=== PATIENT | female | born 1945 | race Caucasian/White ===

== ENCOUNTER 2024-06-18 12:59 | Emergency (ER) | payer OTHER, SELFPAY ==
[2024-06-18] VITALS (9 sets, daily range): BP systolic 154–220; BP diastolic 78–114; PULSE 94
--- NOTE | 2024-06-18 15:25 | ED.GENMED ---
History of Present Illness
<Heaven Wharton PA-C - Last Filed: 06/18/24 20:22>
General
Chief Complaint: Gait Dysfunction
Source: patient
Exam Limitations: none
Time Seen by Provider: 06/18/24 15:23
Nursing documentation reviewed up to this point in time: agreed with
History of Present Illness
History of Present Illness:
78-year-old female with past medical history hypertension, hyperlipidemia, insulin-dependent diabetes, presents to the emergency department today with concerns of balance issues for the past 3 weeks. Patient reports that she is dealt with this for
period of months but felt like it got a lot worse the past few weeks. Patient reports that when she walks, sometimes she feels off balance and feels like she has to grab the counter or the assistance of her friend in order not to fall. Patient
states that she has had no recent falls. Patient denies dizziness, lightheadedness, headache, neck pain, chest pain, shortness of breath. She saw her primary care provider for this issue who ordered a CAT scan of her head which she had today and
this was negative for any acute abnormalities. She was advised by her primary care provider to report to emergency department to have an MRI performed to rule out stroke.
Review of Systems
<Heaven Wharton PA-C - Last Filed: 06/18/24 20:22>
Review of Systems
All Other Systems: ROS reviewed and negative except as documented in HPI and ROS
Phy Exam
<Heaven Wharton PA-C - Last Filed: 06/18/24 20:22>
Physical Exam
Physical Exam:
General: Patient is well appearing and in no acute distress; non-toxic
Skin: Warm and dry, no rashes or lesions
Head: Normocephalic, atraumatic
Eyes: Sclera non-icteric. EOMs intact. PERRLA.
Cardiac: Regular rate and rhythm, no murmurs
Pulm: Normal respiratory effort
Musculoskeletal: 5 out of 5 strength in bilateral upper and lower extremities.
Neuro: CN II-XII intact, no focal neurologic deficits. No dysmetria, normal finger-nose, heel el. Normal gait.
Psychiatric: Appropriate mood and affect.
Scores
<Heaven Wharton PA-C - Last Filed: 06/18/24 20:22>
NIH Stroke Score
Level of Consciousness: 0 - Alert
LOC Questions: 0-Answers both correctly
LOC Commands: 0-Performs both correctly
Best Horizontal Gaze: 0-Normal
Visual Shah: 0=Normal, no visual loss
Facial Palsy: 0=Normal, symmetrical
Motor - Right Arm: 0=No drift 10 seconds
Motor - Left Arm: 0=No drift 10 seconds
Motor - Right Le-No drift 5 seconds
Motor - Left Le-No drift 5 seconds
Limb Ataxia: 0-Absent
Sensation: 0-Normal
Best Language: 0-No aphasia
Dysarthria: 0-Normal
Extinction and Inattention: 0-No abnormality
Total Score:: 0
<Devan Maciel DO - Last Filed: 06/18/24 16:31>
NIH Stroke Score
Total Score:: 0
Course
<Heaven Wharton PA-C - Last Filed: 06/18/24 20:22>
Orders/Labs/Results
Orders:
Orders
06/18/24 13:06
Electrocardiogram (*1) Urgent
Reason for Study: Hypertension, Benign
06/18/24 13:07
EKG- Treatment ONCE
06/18/24 15:29
Electrocardiogram (*1) Urgent
Reason for Study: Vertigo / Dizzy
EKG- Treatment ONCE
06/18/24 15:45
Complete Blood Count/With Diff Urgent
06/18/24 16:09
Pt Eval And Treat Urgent
Activity Level: Ambulate
06/18/24 16:49
Comprehensive Metabolic Panel Urgent
Abnormal Lab Results
06/18/24 06/18/24
15:45 16:49
WBC 12.4 H 10^3/uL
(4.8-10.8)
RBC 4.11 L 10^6/uL
(4.20-5.40)
Hct 36.5 L %
(37.0-47.0)
MCH 31.4 H pg
(27.0-31.0)
MPV 11.9 H fL
(7.4-10.4)
Absolute Neuts (auto) 9.2 H 10^3/uL
(1.4-6.5)
Absolute Monos (auto) 1.0 H 10^3/uL
(0.1-0.6)
Lymphocytes % 16.0 L %
(20.5-51.1)
Sodium 133 L mmol/L
(135-145)
Chloride 94 L mmol/L
(98-107)
Glucose 156 H mg/dl
(70-99)
06/18/24 15:45
06/18/24 16:49
Vital Signs
Initial and Last Documented VS:
Initial Vital Signs
Temp Pulse Resp Pulse Ox
97.7 F 100 16 97
06/18/24 13:00 06/18/24 13:00 06/18/24 13:00 06/18/24 13:00
Last Documented Vital Signs
Temp Pulse Resp BP Pulse Ox
97.7 F 93 17 165/88 97
06/18/24 13:00 06/18/24 16:48 06/18/24 16:48 06/18/24 18:06 06/18/24 18:06
<Devan Maciel, DO - Last Filed: 06/18/24 16:31>
Orders/Labs/Results
Orders:
Orders
06/18/24 13:06
Electrocardiogram (*1) Urgent
Reason for Study: Hypertension, Benign
06/18/24 13:07
EKG- Treatment ONCE
06/18/24 15:29
Electrocardiogram (*1) Urgent
Reason for Study: Vertigo / Dizzy
EKG- Treatment ONCE
06/18/24 15:45
Complete Blood Count/With Diff Urgent
06/18/24 16:09
Pt Eval And Treat Urgent
Activity Level: Ambulate
06/18/24 16:49
Comprehensive Metabolic Panel Urgent
Abnormal Lab Results
06/18/24 06/18/24
15:45 16:49
WBC 12.4 H 10^3/uL
(4.8-10.8)
RBC 4.11 L 10^6/uL
(4.20-5.40)
Hct 36.5 L %
(37.0-47.0)
MCH 31.4 H pg
(27.0-31.0)
MPV 11.9 H fL
(7.4-10.4)
Absolute Neuts (auto) 9.2 H 10^3/uL
(1.4-6.5)
Absolute Monos (auto) 1.0 H 10^3/uL
(0.1-0.6)
Lymphocytes % 16.0 L %
(20.5-51.1)
Sodium 133 L mmol/L
(135-145)
Chloride 94 L mmol/L
(98-107)
Glucose 156 H mg/dl
(70-99)
06/18/24 15:45
06/18/24 16:49
Vital Signs
Initial and Last Documented VS:
Initial Vital Signs
Temp Pulse Resp Pulse Ox
97.7 F 100 16 97
06/18/24 13:00 06/18/24 13:00 06/18/24 13:00 06/18/24 13:00
Last Documented Vital Signs
Temp Pulse Resp BP Pulse Ox
97.7 F 93 17 165/88 97
06/18/24 13:00 06/18/24 16:48 06/18/24 16:48 06/18/24 18:06 06/18/24 18:06
<Heaven Wharton PA-C - Last Filed: 06/18/24 20:22>
MDM/Problems Addressed
Differential Diagnosis Includes:
Differentials include ambulatory dysfunction, orthostatic hypotension, osteoarthritis, polypharmacy, Alzheimer's disease, Parkinson's disease, stroke
MDM/Problems Addressed:
78-year-old female with past medical history hypertension, hyperlipidemia, insulin-dependent diabetes, presents to the emergency department today with concerns of balance issues for the past 3 weeks. Patient states that when she ambulates, she
feels unsteady on her feet. She has had no recent falls because of this. She does not use a walker or cane at home. She denies any numbness or tingling, one-sided weakness, difficulty speaking. Denies any headaches, dizziness, lightheadedness.
On exam, she has a normal gait, nonfocal neurologic exam, no dysmetria. She was evaluated by physical therapy and given a walker. I ran this case by her neurologist on-call who, because patient has a normal neurologic exam and normal gait, does
not feel that patient needs to be admitted for MRI to rule out stroke at this time. Did recommend that patient see a physical therapist on outpatient basis [facility], did recommend further follow-up with PCP, patient stable for
<Heaven Wharton PA-C - Last Filed: 06/18/24 20:22>
*Pulse Oximetry
Patient hypoxic: no
*Critical Care Note
Total Time (30-74mins, 75-104mins- exclusive of procedures): Not Applicable
Data Reviewed
Review of Other/Old Records Reveals: Records (Reviewed discharge summary from 12/13/2022, patient seen for cellulitis)
Source: patient and records
<Heaven Wharton PA-C - Last Filed: 06/18/24 20:22>
Patient Management
Discussion with other providers: Television Writer (Dr. Mullen)
Escalation/DeEscalation of care consider admission/obs:
admit not indicated, patient stable for discharge
case reviewed with ER attending
ED Attending Note
<Heaven Wharton PA-C - Last Filed: 06/18/24 20:22>
-
Portions of this chart may have been created with voice recognition software.� Occasional wrong word or��sound alike� substitutions may have occurred due to the inherent limitations of voice recognition software.
<Devan Maciel DO - Last Filed: 06/18/24 16:31>
ED Attending Note
Patient seen and examined by attending physician: Yes
I performed the substantive portion of visit, reviewed & personally made and approve the management plan that is documented in note by myself or CHENCHO.: Yes
I performed a history and physical exam of patient and discussed management with resident, I reviewed resident's note and agree with documented findings and plan of care.: Yes
ED Attending Note:
I evaluated the patient at bedside. The patient has normal finger-nose testing and normal [id number] testing. She was able to walk while in the ED Emergency Department. She has been hypertensive but also feels that she is under a lot of stress
right now. I did address her high blood pressure readings�she started taking her blood pressure medication at nighttime as opposed in the mornings.
Discharge Plan
Departure
Patient Disposition: Home (Routine Discharge)
Date of Disposition: 06/18/24
Time of Disposition: 17:34
Patient with high blood pressure during this ER visit?: Yes
Condition: Good
Discharge Problem:
Ambulatory dysfunction
Instructions: Preventing Falls ED, BLOOD PRESSURE
Prescriptions:
No Action
ascorbic acid (vitamin C) [Vitamin C] 1,000 MG tablet
1,000 mg PO BID
levothyroxine 100 MCG tablet
100 mcg PO DAILY
vitamin B complex 1 TAB tablet
1 tab PO DAILY
rosuvastatin 20 MG tablet
20 mg PO QPM
cholecalciferol (vitamin D3) [Vitamin D3] 50 mcg (2,000 unit) Tablet
50 mcg PO DAILY Qty: 0
multivitamin Tablet
1 tab PO DAILY
zinc acetate 50 mg (zinc) Capsule
50 mg PO DAILY
aspirin 81 mg Tablet,Delayed Release (Dr/Ec)
81 mg PO BID
calcium carbonate 500 mg calcium (1,250 mg) Tablet
500 mg PO DAILY
vitamin E 268 mg (400 unit) Capsule
268 mg PO DAILY
Januvia 100 mg tablet
100 mg PO DAILY
omega 1-oeo-erx-fish oil [Fish Oil] 1,000 mg (120 mg-180 mg) Capsule
1 cap PO DAILY
turmeric 400 mg Capsule
400 mg PO DAILY
elderberry fruit 350 mg Capsule
350 mg PO BID
Cinnsulin
1 tab PO BID
glucosamine-chondroitin
1 tab PO BID
acetaminophen 325 mg Tablet
650 mg PO Q4HPRN PRN (Reason: mild pain or temp > 100.4 F) Qty: 0 0RF
prednisone 20 mg Tablet
40 mg PO DAILY Qty: 3 0RF
pantoprazole 40 mg Tablet,Delayed Release (Dr/Ec)
40 mg PO DAILY Qty: 30 0RF
indomethacin 25 mg Capsule
25 mg PO BID Qty: 14 0RF
lisinopril 10 MG tablet
20 mg PO DAILY Qty: 30 0RF
Rx Instructions:
hold systolic blood pressure <130
insulin glargine [Lantus Solostar U-100 Insulin] 100 unit/mL (3 mL) insulin pen
26 unit SC HS Qty: 0 0RF
insulin glargine [Lantus Solostar U-100 Insulin] 300 UNITS/3 ML insulin pen
42 units SC DAILY Qty: 0 0RF
Referrals:
Darrell Mullen MD [Active] - Call in 1-3 days for appt
Marily Gordon MD [Family Provider] -
Activity Restrictions/Additional Instructions:
Please return to emergency department should you experience facial droop, weakness on one side of the body versus the other, feeling as though you are falling to one side when ambulating, headache, neck pain, dizziness, lightheadedness, syncopal
episodes, chest pain, shortness of breath, difficulty speaking, or any other signs or symptoms concerning to you.
Please have MRI of the brain performed as an outpatient.
Interventions
Interventions:
*Risk Screen - Suicide Last Done: 06/18/24 13:00
*General Assessment Last Done: 06/18/24 15:48
*Neglect/Abuse Screening Last Done: 06/18/24 13:00
ED- Fall Risk Assessment Last Done: 06/18/24 18:10
*ED COVID-19 Vaccine History Last Done: 06/18/24 13:00
*Nursing Disposition Last Done: 06/18/24 18:10
ED- Neurological Assessment Last Done: 06/18/24 15:47
ED-Musculoskeletal Assessment Last Done: 06/18/24 15:47
Discharge Date and Time
Discharge Date/Time: 06/18/24 18:15
Print Language: KITTITIAN
[2024-06-18 16:13] LABS: % Basophils 0.4 % (0-2); % Immature Granulocytes 0.3 % (0-0.5); % Monocytes 8.1 % (1.7-9.3); % Neutrophils 74.2 % (42.2-75.2); Absolute Basophils 0.1 10^3/uL (0-0.2); Absolute Eosinophils 0.1 10^3/uL (0-0.7); Absolute Neutrophils 9.2 10^3/uL (1.4-6.5); Hematocrit 36.5 % (37.0-47.0); Hemoglobin 12.9 g/dL (12.0-16.0); Mean Corp Hgb Conc. 35.3 g/dL (33.0-37.0); Mean Corpuscular Hgb 31.4 pg (27.0-31.0); Mean Corpuscular Volume 88.8 fL (81.0-99.0); Mean Platelet Volume 11.9 fL (7.4-10.4); Nucleated Red Blood Cells % 0 %; Platelet Count 347 10^3/uL (130-400); Red Blood Cell Count 4.11 10^6/uL (4.20-5.40); Red Cell Dist. Width 12.9 % (11.5-14.5); White Blood Cell Count 12.4 10^3/uL (4.8-10.8)
[2024-06-18 17:33] LABS: ALT (SGPT) 19 U/L (0-35); AST (SGOT) 27 U/L (14-36); Albumin 4.4 g/dl (3.5-5.0); Alkaline Phosphatase 98 U/L (38-126); Blood Urea Nitrogen 17 mg/dl (7-17); Carbon Dioxide 23 mmol/L (22-30); Chloride 94 mmol/L (98-107); Glucose 156 mg/dl (70-99); Potassium 4.6 mmol/L (3.5-5.1); Sodium 133 mmol/L (135-145); Total Bilirubin 0.6 mg/dl (0.2-1.3); Total Protein 7.3 g/dl (6.3-8.2); eGFR > 60.00
[2024-06-18 17:41] LABS: Calcium 10.2 mg/dl (8.4-10.2)
== END 2024-06-18 18:15 | disposition home or self-care (01) ==
LOC: EMR 12:59
PROVIDERS: Physician Assistant; EMERGENCY PHYSICIAN Emergency Medicine; FAMILY PHYSICIAN Internal Medicine
DX: R26.2 Difficulty in walking, not elsewhere classified (principal); I10 Essential (primary) hypertension; E78.5 Hyperlipidemia, unspecified; E11.9 Type 2 diabetes mellitus without complications; Z79.899 Other long term (current) drug therapy; Z79.4 Long term (current) use of insulin
CPT/HCPCS: 99284; 70450; 80053; 85025; 93005

== ENCOUNTER → 2024-06-26 17:44 | Outpatient (REF) | payer OTHER, SELFPAY | LOC: MRI 17:44 | PROVIDERS: ATTENDING PHYSICIAN Nurse Practitioner Family | DX: R29.810 Facial weakness (principal); R26.89 Other abnormalities of gait and mobility; R41.0 Disorientation, unspecified; I10 Essential (primary) hypertension; E11.65 Type 2 diabetes mellitus with hyperglycemia; R29.90 Unspecified symptoms and signs involving the nervous system; R29.818 Other symptoms and signs involving the nervous system | CPT/HCPCS: 70546; 70553; A9585 ==

== ENCOUNTER 2024-07-03 15:59 | Inpatient (IN) | payer OTHER, SELFPAY ==
[2024-07-03 11:14] VITALS: BP 191/89
--- NOTE | 2024-07-03 12:55 | ED.SKININJ ---
HPI-Injury
<Elliott Gonzalez PA-C - Last Filed: 07/03/24 14:29>
General
Chief Complaint: Skin Problem
Source: patient
Exam Limitations: none
Time Seen by Provider: 07/03/24 12:38
History of Present Illness-Injury
Initial Injury comments:
78-year-old female insulin-dependent diabetic presents with chief complaint that she pulled her finger off. She states she injured her fingernail to her right index finger 3 weeks ago and that fell off several days ago she thought what was left was
a blood blister and she started to try to clean it up and she states the tip of her finger came off. 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 She now notes her finger is red. She has neuropathy and
does not have a lot of sensation in her finger.
Phy Exam
<Elliott Gonzalez PA-C - Last Filed: 07/03/24 14:29>
Physical Exam
Physical Exam:
General: Well-appearing female no respiratory distress
HEENT: Normocephalic atraumatic
Skin: Erythema noted to the right index finger from the distalmost portion to the midportion of the middle phalanx, there is necrotic tissue at the end of the finger
Musculoskeletal exam: There is a amputation noted of the distal portion of the right index finger just distal to the base of the distal phalanx
Course
<Elliott Gonzalez PA-C - Last Filed: 07/03/24 14:29>
Orders/Labs/Results
Orders:
Orders
07/03/24 12:54
CR Finger(s)/thumb Min 2 Vw Rt Urgent
Comment:
Reason For Exam: amputation/infection
07/03/24 13:31
Complete Blood Count/With Diff Urgent
Comprehensive Metabolic Panel Urgent
07/03/24 14:22
Piperacillin/Tazo 3.375 Gram [Zosyn] 3.375 gram in 50 ml IV NOW
07/03/24 14:23
Vancomycin [Vancocin] 1,500 mg 0.9% Sodium Chloride 500 ml [Nss] 500 ml IV NOW
Abnormal Lab Results
07/03/24
13:31
WBC 21.4 H 10^3/uL
(4.8-10.8)
RBC 3.84 L 10^6/uL
(4.20-5.40)
Hgb 11.8 L g/dL
(12.0-16.0)
Hct 34.6 L %
(37.0-47.0)
MPV 11.2 H fL
(7.4-10.4)
Abs Immat Gran (auto) 0.1 H 10^3/uL
(0-0.05)
Absolute Neuts (auto) 18.2 H 10^3/uL
(1.4-6.5)
Absolute Monos (auto) 1.4 H 10^3/uL
(0.1-0.6)
Neutrophils % 84.9 H %
(42.2-75.2)
Lymphocytes % 7.7 L %
(20.5-51.1)
Sodium 129 L mmol/L
(135-145)
Chloride 91 L mmol/L
(98-107)
BUN 21 H mg/dl
(7-17)
Glucose 234 H mg/dl
(70-99)
07/03/24 13:31
07/03/24 13:31
Vital Signs
Initial and Last Documented VS:
Initial Vital Signs
Temp Pulse Resp BP Pulse Ox
98.4 F 116 18 191/89 98
07/03/24 11:14 07/03/24 11:14 07/03/24 11:14 07/03/24 11:14 07/03/24 11:14
Last Documented Vital Signs
Temp Pulse Resp BP Pulse Ox
98.4 F 99 18 201/104 98
07/03/24 11:14 07/03/24 13:44 07/03/24 13:44 07/03/24 13:44 07/03/24 13:44
<Damian Nielson MD - Last Filed: 07/03/24 13:18>
Orders/Labs/Results
Orders:
Orders
07/03/24 12:54
CR Finger(s)/thumb Min 2 Vw Rt Urgent
Comment:
Reason For Exam: amputation/infection
07/03/24 13:31
Complete Blood Count/With Diff Urgent
Comprehensive Metabolic Panel Urgent
07/03/24 14:22
Piperacillin/Tazo 3.375 Gram [Zosyn] 3.375 gram in 50 ml IV NOW
07/03/24 14:23
Vancomycin [Vancocin] 1,500 mg 0.9% Sodium Chloride 500 ml [Nss] 500 ml IV NOW
Abnormal Lab Results
07/03/24
13:31
WBC 21.4 H 10^3/uL
(4.8-10.8)
RBC 3.84 L 10^6/uL
(4.20-5.40)
Hgb 11.8 L g/dL
(12.0-16.0)
Hct 34.6 L %
(37.0-47.0)
MPV 11.2 H fL
(7.4-10.4)
Abs Immat Gran (auto) 0.1 H 10^3/uL
(0-0.05)
Absolute Neuts (auto) 18.2 H 10^3/uL
(1.4-6.5)
Absolute Monos (auto) 1.4 H 10^3/uL
(0.1-0.6)
Neutrophils % 84.9 H %
(42.2-75.2)
Lymphocytes % 7.7 L %
(20.5-51.1)
Sodium 129 L mmol/L
(135-145)
Chloride 91 L mmol/L
(98-107)
BUN 21 H mg/dl
(7-17)
Glucose 234 H mg/dl
(70-99)
07/03/24 13:31
07/03/24 13:31
Vital Signs
Initial and Last Documented VS:
Initial Vital Signs
Temp Pulse Resp BP Pulse Ox
98.4 F 116 18 191/89 98
07/03/24 11:14 07/03/24 11:14 07/03/24 11:14 07/03/24 11:14 07/03/24 11:14
Last Documented Vital Signs
Temp Pulse Resp BP Pulse Ox
98.4 F 99 18 201/104 98
07/03/24 11:14 07/03/24 13:44 07/03/24 13:44 07/03/24 13:44 07/03/24 13:44
<Elliott Gonzalez PA-C - Last Filed: 07/03/24 14:29>
MDM/Problems Addressed
Differential Diagnosis Includes:
Finger amputation likely secondary to underlying infectious process. Question possible osteomyelitis. There is necrosis skin distally. X-rays ordered to evaluate for any obvious signs of osteomyelitis
<Elliott Gonzalez PA-C - Last Filed: 07/03/24 14:29>
*Critical Care Note
Total Time (30-74mins, 75-104mins- exclusive of procedures): Not Applicable
<Elliott Gonzalez PA-C - Last Filed: 07/03/24 14:29>
Update Note
Update Note:
X-rays demonstrate bony amputation of the distal phalanx. No obvious sign of osteomyelitis. Patient's white blood cell count is 21,000. She is insulin-dependent diabetic. Discussed with emergency room attending saw the patient as well. Will
keep in hospital for necrotic finger and cellulitis of the index finger. Vanc/zosyn ordered.
ED Attending Note
<Elliott Gonzalez PA-C - Last Filed: 07/03/24 14:29>
-
Portions of this chart may have been created with voice recognition software.� Occasional wrong word or��sound alike� substitutions may have occurred due to the inherent limitations of voice recognition software.
<Damian Nielson MD - Last Filed: 07/03/24 13:18>
ED Attending Note
Patient seen and examined by attending physician: Yes
I performed the substantive portion of visit, reviewed & personally made and approve the management plan that is documented in note by myself or CHENCHO.: Yes
ED Attending Note:
Patient presents with her fingertip falling off. Some local pain. Patient is diabetic. The same issue happened with her middle digit. She does not specifically recall any trauma.
The tip of the second finger is gangrenous and necrotic. There is an open wound at this PIP. There is erythema extending up the finger. Mild swelling. Patient is nontoxic. Good radial pulses. Third digit has an amputated tip. Heart regular
rate and rhythm
Impression is a necrotic gangrenous amputated tip of the second digit. Unknown reason. Which of course in and of itself is a concern. There is also a local cellulitis. Patient warrants inpatient management for cellulitis. Management of this
open necrotic wound and an evaluation of the cause of these episodes occurring.
Discharge Plan
Departure
Patient Disposition: Admit
Date of Disposition: 07/03/24
Time of Disposition: 14:29
Admit to: Telemetry
Presentation/result/management discussed w/ accepting MD/DO: Hospitalist
Discharge Problem:
Cellulitis
Prescriptions:
No Action
ascorbic acid (vitamin C) [Vitamin C] 1,000 MG tablet
1,000 mg PO BID
levothyroxine 100 MCG tablet
100 mcg PO DAILY
vitamin B complex 1 TAB tablet
1 tab PO DAILY
rosuvastatin 20 MG tablet
20 mg PO QPM
cholecalciferol (vitamin D3) [Vitamin D3] 50 mcg (2,000 unit) Tablet
50 mcg PO DAILY Qty: 0
multivitamin Tablet
1 tab PO DAILY
zinc acetate 50 mg (zinc) Capsule
50 mg PO DAILY
aspirin 81 mg Tablet,Delayed Release (Dr/Ec)
81 mg PO BID
calcium carbonate [Oyster Shell Calcium] 500 mg calcium (1,250 mg) Tablet
500 mg PO DAILY
vitamin E 268 mg (400 unit) Capsule
268 mg PO DAILY
glucosamine-chondroitin 500-400 mg Tablet
1 tab PO BID Qty: 0
cinnamon bark [Cinnamon] 500 mg Capsule
500 mg PO DAILY Qty: 0
Januvia 100 mg tablet
100 mg PO DAILY
omega 6-qig-sdk-fish oil [Fish Oil] 1,000 mg (120 mg-180 mg) Capsule
1 cap PO DAILY
turmeric 400 mg Capsule
400 mg PO DAILY
elderberry fruit 350 mg Capsule
350 mg PO BID
lisinopril 10 MG tablet
20 mg PO DAILY Qty: 30 0RF
insulin glargine [Lantus Solostar U-100 Insulin] 300 UNITS/3 ML insulin pen
42 units SC DAILY Qty: 0 0RF
acetaminophen [Tylenol Arthritis] 650 mg Tablet Extended Release
1,300 mg PO [id number] PRN (Reason: mild pain)
insulin glargine [Lantus Solostar U-100 Insulin] 100 unit/mL (3 mL) insulin pen
22 unit SC HS
allopurinol 100 mg Tablet
100 mg PO BID
Referrals:
Marily Gordon MD [Family Provider] -
Interventions
Interventions:
*Risk Screen - Suicide Last Done: 07/03/24 11:14
*General Assessment Last Done: 07/03/24 11:14
*Neglect/Abuse Screening Last Done: 07/03/24 13:14
ED- Fall Risk Assessment Last Done: 07/03/24 13:14
*ED COVID-19 Vaccine History Last Done: 07/03/24 11:14
ED-Skin Assessment Last Done: 07/03/24 13:14
Discharge Date and Time
Print Language: IVORIAN
[2024-07-03 13:42] LABS: % Basophils 0.3 % (0-2); % Eosinophils 0.1 % (0-6); % Immature Granulocytes 0.5 % (0-0.5); % Lymphocytes 7.7 % (20.5-51.1); % Monocytes 6.5 % (1.7-9.3); % Neutrophils 84.9 % (42.2-75.2); Absolute Basophils 0.1 10^3/uL (0-0.2); Absolute Immature Granulocytes 0.1 10^3/uL (0-0.05); Absolute Lymphocytes 1.6 10^3/uL (1.2-3.4); Absolute Monocytes 1.4 10^3/uL (0.1-0.6); Absolute Neutrophils 18.2 10^3/uL (1.4-6.5); Hematocrit 34.6 % (37.0-47.0); Hemoglobin 11.8 g/dL (12.0-16.0); Mean Corp Hgb Conc. 34.1 g/dL (33.0-37.0); Mean Corpuscular Hgb 30.7 pg (27.0-31.0); Mean Corpuscular Volume 90.1 fL (81.0-99.0); Mean Platelet Volume 11.2 fL (7.4-10.4); Nucleated Red Blood Cells % 0 %; Platelet Count 320 10^3/uL (130-400); Red Blood Cell Count 3.84 10^6/uL (4.20-5.40); Red Cell Dist. Width 12.7 % (11.5-14.5); White Blood Cell Count 21.4 10^3/uL (4.8-10.8)
[2024-07-03 13:44] VITALS: BP 201/104
[2024-07-03 13:58] LABS: ALT (SGPT) 19 U/L (0-35); AST (SGOT) 30 U/L (14-36); Albumin 3.9 g/dl (3.5-5.0); Alkaline Phosphatase 86 U/L (38-126); Blood Urea Nitrogen 21 mg/dl (7-17); Calcium 9.7 mg/dl (8.4-10.2); Carbon Dioxide 26 mmol/L (22-30); Chloride 91 mmol/L (98-107); Glucose 234 mg/dl (70-99); Potassium 4.9 mmol/L (3.5-5.1); Sodium 129 mmol/L (135-145); Total Bilirubin 0.7 mg/dl (0.2-1.3); Total Protein 6.8 g/dl (6.3-8.2); eGFR > 60.00
--- NOTE | 2024-07-03 14:32 | HPS.HSE ---
Family Physician
-
Family Physician: Marily Gordon
Chief Complaint
-
Right index finger red swollen distal tip necrotic and missing
History of Present Illness
78-year-old female insulin-dependent diabetic who states she injured her fingernail to her right index finger several months ago and the nail fell off. She has no idea how she injured her index finger. She had an open wound to the distal end of
her right index finger for several months and did not think anything of it. She was seen by a nurse practitioner Lin at [facility] approximately 2 weeks ago for complaints of dizziness needing to use a walker. She had negative CT head
and negative MRI brain per patient. In discussion with the patient she states her blood pressure has been elevated with systolic running around 189. I explained to the patient this could cause her symptoms of dizziness and ataxia. She states she
had the nurse practitioner examine her index finger and at that time there was no erythema and active drainage she was advised to place Aquaphor on the dry areas of her finger and wrapped it with gauze. She noticed approximately 2 days ago the
finger became swollen and there was a black area to the tip of the finger. Where the missing distal skin is. She has severe neuropathy in both hands she does feel a tingling sensation only she has no throbbing pain in her index finger and is able
to squeeze it in front of me. She has a prior history of right middle finger partial amputation secondary to infection complains of erythema to the right index finger and not much pain secondary to chronic neuropathy in her hands. In the ER her
right index finger from the distal to midportion of the middle phalanx is red and swollen and has necrotic tissue at the distal end of the finger.
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 HTN, HLD, hiatal hernia, chronic indigestion,
hypothyroidism, osteoarthritis, cataracts
Medical History
Past Medical History
Past Medical History: Reports Other
Additional Past Medical History:
Diabetes type 2�insulin-dependent
Diabetic neuropathy bilateral hands
HTN
HLD
Hiatal hernia
Chronic indigestion
Hypothyroidism
osteoarthritis
cataracts
Past Surgical History: Reports Other
Additional Past Surgical History:
Left vein stripping
Cataract extraction 07/26/2013
Left vein stripping
[place] tooth extraction
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
Right middle finger partial amputation secondary to infection
Social History
Tobacco: Non-smoker
Alcohol: Occasional
Drug: None
Personal:
Living: With Family ( clellan)
Employment: Retired
Family History
Family History: Not pertinent
Allergies / Home Medications
Allergies reflects when Allergies were last updated in [facility].
Home Medications with original date entered in [facility]
Allergy/Medication List:
Allergies
Allergy/AdvReac Type Severity Reaction Status Date / Time
No Known Allergies Allergy Unverified 12/11/22 11:15
Home Medications
Cinnamon 1,000 mg PO BID 11/13/18
Vitamin D3 1 tab PO DAILY 11/13/18
ascorbic acid (vitamin C) 1,000 mg tablet (Vitamin C) 1,000 mg PO BID 11/13/18
cetirizine 10 mg capsule (Allergy Relief (cetirizine)) 10 mg PO DAILY 11/13/18
levothyroxine 100 mcg tablet 100 mcg PO DAILY 11/13/18
metformin 500 mg tablet 1 tab PO .@0800,@1200,@1800 11/13/18
rosuvastatin 20 mg tablet 20 mg PO QPM 11/13/18
vitamin B complex 1 tab PO DAILY 11/13/18
mupirocin 2 % topical ointment 1 applic intranasal BID #1 tube 11/26/18
acetaminophen 325 mg tablet 650 mg PO QID 01/29/19
aspirin 325 mg tablet,delayed release 325 mg PO DAILY 01/29/19
docusate sodium 100 mg capsule 100 mg PO BID 01/29/19
glimepiride 2 mg tablet 2 mg PO DAILY 01/29/19
insulin glargine 100 unit/mL (3 mL) subcutaneous pen (Lantus Solostar U-100 Insulin) 15 units (0.15 mL) SC BID ##1 01/29/19
lisinopril 10 mg tablet 10 mg PO DAILY ##0 01/29/19
magnesium hydroxide 400 mg/5 mL oral suspension 30 ml PO DAILYPRN PRN constipation 01/29/19
oxycodone 5 mg tablet 5 mg PO Q4HPRN PRN moderate-severe pain ##35 01/29/19
sennosides 8.6 mg tablet (senna) 2 tab PO BID 01/29/19
Review of Systems
-
History Source: Patient and Family ( at bedside)
A 12 point ROS was completed and negative except as noted: Yes
Constitutional: Denies Fever, Fatigue or Chills
EENT: Denies Sore Throat or Runny Nose
Respiratory: Denies Cough or Trouble Breathing
Cardiac: Denies Chest Pain, Diaphoresis, Palpitations or Syncope
Abdomen/GI: Denies Abdominal Pain, Nausea, Vomiting, Diarrhea, Constipated, Bloody Stools or Black Stools
: Denies Dysuria, Frequency, Flank Pain, Incontinence, Difficulty Voiding or Urgency
Musculoskeletal: Reports Joint Swelling (Right index finger), Edema (Right index finger) and Other (Right index finger with circumferential swelling and erythema along with distal tip skin missing with area of necrosis at tip level, severe
neuropathy in both hands); Denies Joint Pain
Skin: Denies Itching or Rash
Neurological: Reports Dizzy (Ongoing 2 to 3 weeks with ambulatory dysfunction); Denies Headache, Weakness or Numbness
Endocrine: Reports No Symptoms
Hematologic/Lymphatic: Reports No Symptoms
Psych: Reports Calm
Physical Exam
Vital Signs
Vital Signs
Temp Pulse Resp BP Pulse Ox
98.4 F 99 18 201/104 98
11/27/24 11:14 07/03/24 13:44 07/03/24 13:44 07/03/24 13:44 07/03/24 13:44
Physical Exam
General: Comfortable and Conversant; No Pain, Fever or Chills
HEENT: NormoCephalic, Anicteric, Moist mucous membranes, PERRLA, [place] Conjunctivae and No Ptosis
Respiratory: Clear; No Wheezes, Rales or Rhonchi
Cardiac: S1/S2 and Regular Rhythm; No Murmur, Rub, Gallop or Peripheral Edema
GI: Soft, Non Tender, Non Distended, Normal Bowel Sounds and No Hepatosplenomegaly
Rectal: Deferred by Provider
Genito-urinary: Deferred by me
Musculoskeletal: No Clubbing, No Cyanosis, No Edema and Other (Right index finger with circumferential swelling and erythema along with distal tip skin missing with area of necrosis at tip level, severe neuropathy in both hands)
Skin: Warm and Dry; No Rash or Jaundice
Neuro: AO x 3, Nonfocal/grossly intact, Cranial Nerves Intact, No Sensory Deficits and Other (Using cane over the last 2 to 3 weeks for dizziness and ataxia); No Slurred Speech, Facial Droop, Tremors or Sedated
Psych: Calm
Laboratory Results
-
07/03/24 13:31
07/03/24 13:31
Laboratory Results
Total Bilirubin 0.7 mg/dl (0.2-1.3) 07/03/24 13:31
AST 30 U/L (14-36) 07/03/24 13:31
ALT 19 U/L (0-35) 07/03/24 13:31
Alkaline Phosphatase 86 U/L (38-126) 07/03/24 13:31
Data Reviewed
-
Diagnostic Radiology: Report Reviewed by me
Lab Data: Labs Reviewed by me
Impression/Plan
-
Impression/plan:
Admit to telemetry
Right index finger cellulitis with open necrotic wound at the PIP level secondary osseous amputation concern for osteomyelitis and diabetic female
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
WBC 21.4 left shift, 98.4, HR 99, 201/104
-Consult Ortho
-IV vancomycin, IV Zosyn
-Check MRSA screen
-Will check CT hand with contrast per Dr. Tian Alok orthopedics
-Follow CBC, CMP
Xray finger:
Soft tissue and osseous amputation at the level of the distal aspect of the distal phalanx of the right index finger. No radiopaque foreign body. No definitive abnormal osteolysis of the remaining portion of the distal phalanx.
#Hyponatremia in setting of mild hyperglycemia
NA 129,BS 234
-Check urine Osmo, serum Osmo, urine NA, TSH with free T4 reflex
#Htn accelerated
-Lisinopril 20 mg added now
-Continue lisinopril 20 mg at bedtime
-Will change lisinopril from 20 mg daily to lisinopril 20 mg twice daily with hold parameters
#Diabetes type 2�insulin-dependent Dx age 43
#Diabetic neuropathy bilateral hands
-Continue Lantus 42 units a.m., Lantus 22 units at bedtime
-Hold Januvia 100 mg daily
-Will give SSI low with meals, check HgbA1c
-Consult diabetic HYDROMETEOROLOGIST
#Acute on chronic ambulatory dysfunction with dizziness likely secondary to persistent blood pressure systolic 189 over the past 2 to 3 weeks But has Abn MA BRAIN
-Patient had outpatient MRI brain and CT she reports both were negative
-We will adjust blood pressure medication and monitor patient's symptoms and gait
-Consult PT/OT
-Consult NEURO
MA [place] [facility] [place] with and without contrast: 06/18/2024
1. This examination demonstrates no focal hemodynamically significant stenosis, aneurysm or occlusion.
2. 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
MRI brain 06/18/2024
1. No acute intracranial abnormality noted.
2. There is mild atrophy, most pronounced within the bilateral mesial temporal lobes. Minimal microangiopathic changes.
3. Severe degenerative changes of the bilateral temporomandibular joints, more pronounced on the right.
CT brain 06/18/2024
1. No acute intracranial pathology.
2. Mild nonacute bilateral maxillary sinusitis.
#HLD
-Continue Crestor 20 mg every afternoon
- HOLD fish oil, and vitamin E
#Hiatal hernia
#Chronic indigestion
-Will add PPI and occasional Tums
#Hypothyroidism
Check TSH with free T4 reflex
-Continue levothyroxine 100 mcg p.o. daily
#Osteoarthritis
-Continue Tylenol 1000 mg 3 times daily
#Gout
Continue allopurinol 100 mg twice daily
#cataracts
DVT prophylaxis
Subcu Lovenox
Full code
[2024-07-03 14:46] VITALS: BMI 35.5
--- NOTE | 2024-07-03 14:46 | W.PN.UPDATE ---
Update Note
Progress Note Update
This note serves as an addendum to the H&P by logistics planner Suzi BUTTS
HPI
77 HX [id number], HTN, HLD, Hypothyroidism seen at ER:
- Rt index finger nail injury 3 weeks ago then fell off several days ago
- left was a blood blister and she started to try to clean it up and she states the tip of her finger came off ?
- report Rt index finger is red
- HX right middle finger partial amputation secondary to infection.
PHX: as above
Reviewed VS: afebrile BP 201/104 HR 115--> 100
PE
Gen: Not toxic
HEENT: anicteric
Neck: supple
Lungs: CTA
Cor: RRR S1 S2
Abdomen: Benign exam
TEST LEAD APPLICATION TESTING: AAOx3 symmetric movements in all limbs
MS: right index finger: from the distal most portion to the midportion of the middle phalanx, there is necrotic tissue at the end of the finger
Psych: normal mood and affect
Finger XR
Soft tissue and osseous amputation at the level of the distal aspect of the distal phalanx of the right index finger.
No radiopaque foreign body.
No definitive abnormal osteolysis of the remaining portion of the distal phalanx.
Data
WCC 21.4
Hgb 11.8
Na 129 BG 234 Corrected Na 131
Cl 91
Cr 0.9
Last hospitalist admission :Date of Admission: 12/11/22 -Date of Discharge: 12/13/22
Discharge DX: right wrist/forearm redness, suspect secondary to pseudogout
ASSESSMENT & PLAN
Non traumatic deep tissues infection with necrosis and cellulitic distal portion of the distal phalanx of the Rt index finger
No definitive abnormal osteolysis of the remaining portion of the distal phalanx
Sepsis ( HR > 90, WCC > 10k)
S/P middle finger partial amputation secondary to infection: well healed
Known underlying peripheral neuropathy distal UExs
- leucocytosis 21s
- Check nasal MRSA screen
- Empiric IV Vancomycin and Zosyn - trend WCC
- Hand Ortho consult
HTN urgency: she has not taken Lisinopril today coz she normally takes at night
Benign HTN
- IV Hydralazine PRN for SBP > 165/ 110
- to give ACCOUNT CLASSIFICATION CLERK Lisinopril 20 mg now
- Observe BP
Hyperglycemia acute infection
[id number]
- Lantus 42u daily and 22U qhs qhs
- add ISS low
- check A1C
Pseudohyponatremia due to hyperglycemia
- Observe Na with BS corrrection
Hyperlipidemia
- cont. ACCOUNT CLASSIFICATION CLERK Rosuvastatin 20mg qpm
Hypothyroidism
- cont. ACCOUNT CLASSIFICATION CLERK levothyroxine 100mcg daily
DVT Px: SQH
Full code
IP TLM
[2024-07-03] MEDS: ZOSYN 50 IV ×2 (14:48→22:15)
--- NOTE | 2024-07-03 15:53 | CON.NEURO ---
Neuro Assessment/Plan
Assessment
Semiabrupt onset of gait ataxia
Most likely due to severe sensory axonal peripheral neuropathy. There is no clear evidence of an ataxia currently.
Plan
Physical therapy to improve gait
Normoglycemia, gradually to not induce a painful neuropathy
Goal of normotension
Patient may require orthostatic blood pressures although not experiencing a sense of dizziness at this time
Check blood work for additional metabolic abnormalities which might be producing symptomatology
Will follow as needed.
Consultation
Order
Date of Consultation: 07/03/24
Requesting Provider: Hospitalist
Reason for Consult: Ataxia
Subjective/Objective
Subjective Data
Date of Service: July 03, 2024
Right handed
According to medical records, the patient began experiencing a sense of being off balance in May 2024 for which she presented to her primary care provider. An MRI of the brain was ordered with MRA of the head. Neither study showed significant
issues. Additionally, at the time of her last primary care visit, the patient has been described as having cognitive decline over the course of the last month. Specifically, the patient was retelling stories incorrectly.
Patient reports that she has been experiencing unsteadiness in no particular direction. She has not had any falling. There has been longstanding tingling sensation in the feet lasting for years. Back pain but not neck pain has been present for
the last 10 years. She has never had therapy to improve balance.
Due to a significant infection of the right second finger, the patient presented to this hospital's emergency department.
Objective Data
Vital Signs
Temp Pulse Resp BP Pulse Ox
36.9 C 99 18 201/104 98
07/03/24 11:14 07/03/24 13:44 07/03/24 13:44 07/03/24 13:44 07/03/24 13:44
Lab Results
07/03/24 13:31
07/03/24 13:31
Sodium 129 mmol/L (135-145) L 07/03/24 13:31
Potassium 4.9 mmol/L (3.5-5.1) 07/03/24 13:31
BUN 21 mg/dl (7-17) H 07/03/24 13:31
Glucose 234 mg/dl (70-99) H 07/03/24 13:31
Calcium 9.7 mg/dl (8.4-10.2) 07/03/24 13:31
Patient Allergies
No Known Allergies Allergy (Verified 07/03/24 11:18)
Review of Systems
-
History Source: Patient and Family
All other systems: Reviewed and negative
EENT: Negative Decreased Vision
Abdomen/GI: Negative Incontinence of Stool
Genitourinary: Negative Incontinence
Musculoskeletal: Back Pain; Negative Neck Pain
Neuro: Other (Unsteadiness); Negative Dizzy or Headache
Physical Exam
-
General: No Apparent Distress, Obese and Appears Stated Age
Eyes: OU Absent Papilledema, Able to visualize OU, Round OU, [place] Conjunctivae and No Ptosis
HEENT: Anicteric and Moist Mucous Membranes
Neck: Full Range of Motion
Respiratory: No Dyspnea
Cardiac: No JVD
GI: Non-distended
Extremities: No Clubbing, No Cyanosis, Edema +2 (Right second finger) and Other (Near loss of the distal phalanx of the right second finger)
Psych: Negative Intact Judgement/Insight
Extended Neurological Exam
Mood & Affect: Mood Unremarkable and Affect Unremarkable
Attention Span & Concentration: Awake, Alert, Interactive and No Difficulty with 2 Step Request
Memory: Unremarkable
Tremor: Hand Tremor Absent and Head Tremor Absent
Speech: Quality Unremarkable and Quantity Unremarkable
Cranial Nerve II: Left Eye: Pupillary Reactivity Unremarkable, Pupillary Size Unremarkable and Visual Shah Intact
Cranial Nerve II: Right Eye: Pupillary Reactivity Unremarkable, Pupillary Size Unremarkable and Visual Shah Intact
Cranial Nerves III, IV, : Extraocular Movement: Extraocular Movement Full in all Directions and No Ptosis
Cranial Nerve VII: Facial Symmetry: Normal Facial Symmetry
Cranial Nerve VIII: Hearing: Unremarkable Hearing to Normal Conversational Volume
Cranial Nerves IX, X: Palate Movement: Palate Elevation Symmetric
Cranial Nerve XI: Shoulder Shrug: Unremarkable
Cranial Nerve XII: Tongue Protusion: Midline
Muscle Strength, Overall: Full Throughout
Muscle Bulk & Tone: Bulk Unremarkable and Tone Unremarkable
Pronator Drift: No Drift in Upper Extremities and No Drift in Lower Extremities
Deep Tendon Reflexes: Absent Throughout
Touch Sensation: Unremarkable
Coordination: [id number]-[id number] Testing Unremarkable and Pqij-Szeb-Immp movements intact bilaterally
Babinski Sign: Absent Bilaterally
Gait & Station: Up from Seated Without Problem, Romberg Test Positive and Wide Based
Data Reviewed
-
MRI Head: Report Reviewed and Image Reviewed
MRA Head: Report Reviewed
Labs: Report Reviewed
Reviewed with: Nurse Practioner, Patient and Family
Old Records: Summarized
Medications
-
Active Medications
Generic Name Dose Route Start Last Admin
Trade Name Freq PRN Reason Stop Dose Admin
Vancomycin HCl 2,000 mg/ 540 mls @ 270 mls/hr 07/03/24 14:53
Sodium Chloride IV 07/03/24 16:52
NOW STA
Home Medications
�Medication �Instructions �Recorded
ascorbic acid (vitamin C) 1,000 mg 1,000 mg PO BID Supplement 11/13/18
tablet (Vitamin C)
cholecalciferol (vitamin D3) 50 50 mcg PO DAILY Supplement ##0 11/13/18
mcg (2,000 unit) tablet (Vitamin
D3)
levothyroxine 100 mcg tablet 100 mcg PO DAILY Thyroid 11/13/18
rosuvastatin 20 mg tablet 20 mg PO QPM High Cholesterol 11/13/18
vitamin B complex 1 tab PO DAILY Supplement 11/13/18
aspirin 81 mg tablet,delayed 81 mg PO BID Blood Clot 12/11/22
release Prevention/Tx
calcium carbonate (Oyster Shell 500 mg PO DAILY Supplement 12/11/22
Calcium)
cinnamon bark 500 mg capsule 500 mg PO DAILY Supplement ##0 12/11/22
(Cinnamon)
elderberry fruit 350 mg capsule 350 mg PO BID Supplement 12/11/22
glucosamine-chondroitin 500 mg-400 1 tab PO BID Supplement ##0 12/11/22
mg tablet
multivitamin 1 tab PO DAILY Supplement 12/11/22
omega 6-pwf-scs-fish oil 1,000 mg 1 cap PO DAILY Supplement 12/11/22
(120 mg-180 mg) capsule (Fish Oil)
sitagliptin phosphate 100 mg 100 mg PO DAILY Diabetes 12/11/22
tablet (Januvia)
turmeric 400 mg capsule 400 mg PO DAILY Supplement 12/11/22
vitamin E 268 mg (400 unit) capsule 268 mg PO DAILY Supplement 12/11/22
zinc acetate 50 mg (zinc) capsule 50 mg PO DAILY Supplement 12/11/22
acetaminophen 650 mg 1,300 mg PO [id number] PRN mild pain 07/03/24
tablet,extended release
allopurinol 100 mg tablet 100 mg PO BID Gout 07/03/24
insulin glargine 100 unit/mL (3 22 unit SC HS Diabetes 07/03/24
mL) subcutaneous pen (Lantus
Solostar U-100 Insulin)
insulin glargine 100 unit/mL (3 42 units SC DAILY Diabetes 07/03/24
mL) subcutaneous pen (Lantus
Solostar U-100 Insulin)
lisinopril 10 mg tablet 20 mg PO HS Blood Pressure 07/03/24
Past History
Past History
ED Past Medical History: HTN, NIDDM, Hypothyroidism and Other (Osteopenia)
ED Past Surgical History: Orthopedic (Right TKR 2018) and Other (Varicose vein laser surgery 2008, cataract extractions)
Social History
Tobacco: Non-smoker
Alcohol: None
Family History
Family History: Other (Reviewed and noncontributory)
[2024-07-03] MEDS: ZESTRIL 20 MG PO ×2 (16:42→22:20)
[2024-07-03] MEDS: VANCOCIN 540 MG IV (16:45)
[2024-07-03 19:02] LABS: Glucose - Point of Care 133 mg/dl (70-99)
[2024-07-03 19:13] VITALS: BP 188/103
[2024-07-03 20:33] LABS: Osmolality Serum 276 mOsm/kg (275-300)
[2024-07-03 21:21] LABS: Glucose - Point of Care 88 mg/dl (70-99)
[2024-07-03 21:28] VITALS: BMI 31.8
--- NOTE | 2024-07-03 21:59 | PHA.VAN.IN ---
Assessment
- Assessment
Renal Function: Appears similar to baseline
Concomitant Antimicrobials: ZOSYN
- Previous Dosing Experience
Previous Regimen: SINGLE DOSE ONLY
Date of Regimen: 12/11/22
AUC Dosing Plan
- Dosing Variables
Dosing Weight (kg): 84.1
Dosing CrCl (ml/min): 52
Vd coefficient (L/kg): 0.6
- Empiric Dosing
Initial / Loading Dose: 2GM
Maintenance Regimen: 1250MG IV Q24H
Estimated AUC (mcg*h/mL): 539
Estimated Peak (mcg*h/mL): 36.4
Estimated Trough (mcg/ml): 12.5
Estimated Half Life (H): 14.6
Pharmacokinetics Vancomycin I
- -
Patient Age: 78
Patient Sex: Female
Vancomycin Day #: 1
Indication: [facility] (NECROTIC FINGER)
Requesting Provider: BECKIE
Height / Weight:
Height 5 ft 4 in
Actual Weight 84.096 kg
Pertinent Past Medical History: DM
- Vital Signs / Lab Results
Temp Pulse Resp BP Pulse Ox
98.5 F 100 14 188/103 95
07/03/24 21:28 07/03/24 21:28 07/03/24 21:28 07/03/24 19:13 07/03/24 21:28
Lab Results - Hematology
07/03/24
13:31
WBC 21.4 H
Lab Results - Chemistry
07/03/24
13:31
BUN 21 H
Creatinine 0.9
Albumin 3.9
[2024-07-03] MEDS: NOVOLOG FLEXPEN-LOW RESISTANCE SC (22:00)
[2024-07-03] MEDS: ASPIR LOW (ENTERIC COATED) 81 MG PO (22:12)
[2024-07-03] MEDS: CRESTOR 20 MG PO (22:12)
[2024-07-03] MEDS: LOVENOX 40 MG SC (22:12)
[2024-07-03] MEDS: TYLENOL PO (22:14)
[2024-07-03] MEDS: ZYLOPRIM 100 MG PO (22:14)
[2024-07-03] MEDS: VITAMIN C 1000 MG PO (22:14)
[2024-07-03 22:45] LABS: Urine Albumin Trace (Neg - Trace); Urine Bilirubin Negative (Negative); Urine Character Clear (Clear); Urine Color Yellow; Urine Glucose Negative (Negative); Urine Ketone Negative (Negative); Urine Leukocyte 1+ (Negative); Urine Nitrite Negative (Negative); Urine Occult Blood Negative (Negative); Urine Urobilinogen Negative (Neg - 1+)
[2024-07-03 22:48] LABS: Osmolality Urine 281 mOsm/kg (300-900)
[2024-07-03 22:51] LABS: Urine Red Blood Cell 0-2 /HPF (0-2)
[2024-07-03 22:54] LABS: Urine Bacteria Few (Negative)
[2024-07-03 22:56] LABS: Urine Sodium 57 mmol/L (30-90)
[2024-07-03 23:00] VITALS: BP 167/91
[2024-07-03] MEDS: LANTUS SC (23:04)
[2024-07-04] VITALS (7 sets, daily range): BP systolic 147–182; BP diastolic 71–94
--- NOTE | 2024-07-04 01:51 | PTCARENOTE ---
Patient received from ED via stretcher and ambulated with Ax1 to the bathroom. She was oriented to room and surroundings. Tele NSR/ST Breath sounds CTA b/l. +BS, voiding in bathroom. Ax1 RW. Right index finger red, edematous with necrotic tip
ROBERT. IV ABX as ordered. Fingerstick glucose 88. Patient had not eaten and was given boxed lunch. Refused HS Lantus stating BS had decreased overnight the night prior to admission. Reviewed with ANGELITA, covering house. Patient states pain in
comfortable range.
[2024-07-04] MEDS: ZOSYN 50 IV ×4 (04:22→22:34)
[2024-07-04] MEDS: FLUSH (NSS) 2 FLUSH IV (04:23)
[2024-07-04] MEDS: SYNTHROID 100 MCG PO (05:28)
[2024-07-04] MEDS: VANCOCIN 275 MG IV (05:55)
--- NOTE | 2024-07-04 07:29 | W.PN.HOSP.TC ---
Today's Communication/Plan
-
cont empiric abx
glycemic control
blood pressure control
ID eval requested
PT/OT
Assessment / Plan
Assessment / Plan
Physical Exam
General: No acute distress appears comfortable at this time
HEENT: NormoCephalic, Anicteric, Moist mucous membranes, PERRLA, [place] Conjunctivae and No Ptosis
Respiratory: Clear; No Wheezes, Rales or Rhonchi
Cardiac: S1/S2 and Regular Rhythm; No Murmur, Rub, Gallop or Peripheral Edema
GI: Soft, Non Tender, Non Distended, Normal Bowel Sounds and No Hepatosplenomegaly
Musculoskeletal: Right index finger with circumferential swelling and erythema along with distal tip skin missing with area of necrosis at tip level
Skin: Warm and Dry; No Rash or Jaundice
Neuro: AO x 3
Psych: Calm
78F IDDM HTN HLD Hypothyroid Diabetic Neuropathy right middle finger partial amputation here with swelling erythema right index finger concerning for osteomyelitis and ataxia suspected d/t peripheral neuropathy.
Right index finger cellulitis with open necrotic wound at the PIP level secondary osseous amputation concern for osteomyelitis and diabetic female
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
-Consult Ortho appreciated
-IV vancomycin, IV Zosyn
-Check MRSA screen
-ID eval requested
X-ray finger appreciated:
Soft tissue and osseous amputation at the level of the distal aspect of the distal phalanx of the right index finger. No radiopaque foreign body. No definitive abnormal osteolysis of the remaining portion of the distal phalanx.
MRI hand appreciated:
-Large amount of cellulitis about the second finger. Soft tissue wound of the distal second finger exposing a portion of the second distal phalanx, which contains bone marrow edema, most suspicious for the early changes of acute osteomyelitis.
-Bone marrow edema in the head of the third middle phalanx deep to the amputation to the third distal interphalangeal joint. This is more likely to be reactive
#Mild Pseudohyponatremia
monitor
#HTN urgency
Lisinopril increased from 20 mg daily to BID
monitor and titrate antihypertensive regimen as necessary
#Diabetes type 2�insulin-dependent Dx age 43
#Diabetic neuropathy bilateral hands
-Hold Lantus 42 units a.m., cont Lantus 22 units at bedtime
-Hold Januvia 100 mg daily
-low dose sliding scale
-A1c 8.5
-Consult diabetic ABORIGINAL LIAISON OFFICER
-monitor and titrate Insulin regimen as necessary.
#Acute on chronic ambulatory dysfunction with dizziness
-Consult PT/OT
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
[place] with and without contrast: 06/18/2024
1. This examination demonstrates no focal hemodynamically significant stenosis, aneurysm or occlusion.
2. 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
MRI brain 06/18/2024
1. No acute intracranial abnormality noted.
2. There is mild atrophy, most pronounced within the bilateral mesial temporal lobes. Minimal microangiopathic changes.
3. Severe degenerative changes of the bilateral temporomandibular joints, more pronounced on the right.
CT brain 06/18/2024
1. No acute intracranial pathology.
2. Mild nonacute bilateral maxillary sinusitis.
#HLD
-Continue Crestor
#Hiatal hernia
#Chronic indigestion
-PPI prn Tums
#Hypothyroidism
Check TSH with free T4 reflex
-Continue levothyroxine 100 mcg p.o. daily
#Osteoarthritis
-Continue Tylenol 1000 mg 3 times daily
#Gout
Continue allopurinol 100 mg twice daily
#cataracts
DVT prophylaxis
Subcu Lovenox
Full code
I spent a total of 50 minutes with the patient or on the floor. More than 50% of this time involved counseling and coordination of care.
Anticipated Discharge: 24 - 48 hours
Subjective/Interval History
-
Date of Service: July 04, 2024
No acute distress resting comfortably in bed. Overall reports feeling well. Denies significant pain at this time. Right index finger remains swollen erythematous
Objective Data
-
Labs:
Laboratory Results
07/04/24
07:11
WBC Pending
Hgb Pending
Hct Pending
Plt Count Pending
Sodium Pending
Potassium Pending
Chloride Pending
Carbon Dioxide Pending
BUN Pending
Creatinine Pending
Glucose Pending
Calcium Pending
Total Bilirubin Pending
AST Pending
ALT Pending
Alkaline Phosphatase Pending
Vital Signs:
Vital Signs
Temp Pulse Resp BP Pulse Ox
98.3 F 96 16 155/81 92
07/04/24 03:00 07/04/24 03:00 07/04/24 03:00 07/04/24 03:00 07/04/24 03:00
I&O
07/03/24 07/04/24 07/05/24
06:59 06:59 06:59
Intake Total 1215 / 1215
Balance 1215 / 1215
[2024-07-04 07:50] LABS: % Basophils 0.4 % (0-2); % Eosinophils 1.5 % (0-6); % Immature Granulocytes 0.5 % (0-0.5); % Lymphocytes 12.6 % (20.5-51.1); % Monocytes 7.9 % (1.7-9.3); % Neutrophils 77.1 % (42.2-75.2); Absolute Basophils 0.1 10^3/uL (0-0.2); Absolute Eosinophils 0.2 10^3/uL (0-0.7); Absolute Immature Granulocytes 0.1 10^3/uL (0-0.05); Absolute Lymphocytes 1.8 10^3/uL (1.2-3.4); Absolute Monocytes 1.1 10^3/uL (0.1-0.6); Hematocrit 32.7 % (37.0-47.0); Hemoglobin 11.2 g/dL (12.0-16.0); Mean Corp Hgb Conc. 34.3 g/dL (33.0-37.0); Mean Corpuscular Hgb 30.9 pg (27.0-31.0); Mean Corpuscular Volume 90.1 fL (81.0-99.0); Mean Platelet Volume 11.9 fL (7.4-10.4); Nucleated Red Blood Cells % 0 %; Platelet Count 314 10^3/uL (130-400); Red Blood Cell Count 3.63 10^6/uL (4.20-5.40); Red Cell Dist. Width 12.6 % (11.5-14.5); White Blood Cell Count 14.3 10^3/uL (4.8-10.8)
--- NOTE | 2024-07-04 08:03 | PHA.VAN.FU ---
Vancomycin Assessment / Plan
- Assessment
Renal Function: Stable
WBC's are: Trending Down
In the past 24 hrs, patient has been: Afebrile
Concomitant Antimicrobials: piperacillin/tazobactam
- Dosing Plan
Continue: Vanc 1250mg Q24H
- Monitoring Plan
No level(s) ordered at this time: consider levels in next few days
- Follow Up
Pharmacy will continue to follow.
Vancomycin Follow UP
- -
Patient Age: 78
Patient Sex: Female
Vancomycin Day #: 2
Indication: Bone And Joint
Requesting Provider: Jonathon Nichols
Pertinent Antimicrobial Allergies:
NKDA
Height / Weight:
Height 5 ft 4 in
Actual Weight 84.096 kg
Pertinent Past Medical History: BMI ~32, DM 2
- Vital Signs / Lab Results
Temp Pulse Resp BP Pulse Ox
98.3 F 96 16 155/81 92
07/04/24 03:00 07/04/24 03:00 07/04/24 03:00 07/04/24 03:00 07/04/24 03:00
Lab Results - Hematology
07/03/24 07/04/24
13:31 07:11
WBC 21.4 H 14.3 H
Lab Results - Chemistry
07/03/24
13:31
BUN 21 H
Creatinine 0.9
Albumin 3.9
Lab Results - Urine
07/03/24
22:36
Urine Nitrite (Reflex) Negative
Leukocyte Esterase Rfl 1+ A
Ur Squamous Epith Cells 11-
[2024-07-04 08:04] LABS: Glucose - Point of Care 101 mg/dl (70-99)
[2024-07-04] MEDS: NOVOLOG FLEXPEN-LOW RESISTANCE SC (08:08)
[2024-07-04 08:21] LABS: ALT (SGPT) 18 U/L (0-35); AST (SGOT) 25 U/L (14-36); Albumin 3.5 g/dl (3.5-5.0); Alkaline Phosphatase 82 U/L (38-126); Blood Urea Nitrogen 14 mg/dl (7-17); Carbon Dioxide 25 mmol/L (22-30); Chloride 97 mmol/L (98-107); Estimated Creatinine Clearance 52 ml/min; Glucose 88 mg/dl (70-99); Potassium 4.3 mmol/L (3.5-5.1); Sodium 134 mmol/L (135-145); Total Bilirubin 0.6 mg/dl (0.2-1.3); Total Protein 6.2 g/dl (6.3-8.2); eGFR > 60.00
--- NOTE | 2024-07-04 08:26 | CON.ORTHO ---
Addendum entered and electronically signed by Alok Tian MD 07/04/24 09:16:
Examination:
-Right index finger with swelling and erythema to middle phalanx; necrotic skin at tip with autoamputation of distal aspect of phalanx, slight purulence expressible
-sensation intact in all fingers
-full active ROM index PIP, DIP without pain
-no tenderness to palpation
-no instability of IP, MCP joints
-palpable radial pulse, brisk capillary refill
-Right long finger with prior amputation at distal phalanx level, without erythema, necrosis, or tenderness
Original Note:
Consultation
-
Date/Time Consultation Requested: 07/03/2024 14:35
Date/Time Consultation Performed: 07/04/2024 08:27
Requesting Provider: Suzi Nichols
Performing Provider: Alok Tian
Reason for Consultation: right index finger infection
Consultation - Orthopedics
History
Ms Jackson is a right handed 78F with with diabetes and approximately three days of drainage from her right index finger. She states that maybe a month ago, she is unsure of the timing, she sustained a cut to her distal right index finger in the
kitchen. She placed a bandage on the wound and had no other complaints at that time. Approximately two weeks ago she was filing her nails and her nail fell off. She then noticed a black discoloration and drainage and presented to the hospital. She
states she has had long standing diabetes and her right long finger had a similar complaint many years ago, and it underwent autoamputation and healed. She denies fevers, chills, night sweats, or other symptoms of systemic infection. Since being
admitted to the hospital she does not think the antibiotics have decreased the swelling or erythema in her right index finger. She states she has no pain in the finger, is able to flex and extend her PIP/DIP. XRay examination noted amputation at the
distal aspect of the distal phalanx without obvious erosion or signs of osteomyelitis in the remain distal phalanx.
Allergies / Home Medications
Allergy/AdvReac Type Severity Reaction Status Date / Time
No Known Allergies Allergy Verified 07/03/24 11:18
�Medication �Instructions �Recorded
ascorbic acid (vitamin C) 1,000 mg 1,000 mg PO BID Supplement 11/13/18
tablet (Vitamin C)
cholecalciferol (vitamin D3) 50 50 mcg PO DAILY Supplement ##0 11/13/18
mcg (2,000 unit) tablet (Vitamin
D3)
levothyroxine 100 mcg tablet 100 mcg PO DAILY Thyroid 11/13/18
rosuvastatin 20 mg tablet 20 mg PO QPM High Cholesterol 11/13/18
vitamin B complex 1 tab PO DAILY Supplement 11/13/18
aspirin 81 mg tablet,delayed 81 mg PO BID Blood Clot 12/11/22
release Prevention/Tx
calcium carbonate (Oyster Shell 500 mg PO DAILY Supplement 12/11/22
Calcium)
cinnamon bark 500 mg capsule 500 mg PO DAILY Supplement ##0 12/11/22
(Cinnamon)
elderberry fruit 350 mg capsule 350 mg PO BID Supplement 12/11/22
glucosamine-chondroitin 500 mg-400 1 tab PO BID Supplement ##0 12/11/22
mg tablet
multivitamin 1 tab PO DAILY Supplement 12/11/22
omega 3-ywn-gmy-fish oil 1,000 mg 1 cap PO DAILY Supplement 12/11/22
(120 mg-180 mg) capsule (Fish Oil)
sitagliptin phosphate 100 mg 100 mg PO DAILY Diabetes 12/11/22
tablet (Januvia)
turmeric 400 mg capsule 400 mg PO DAILY Supplement 12/11/22
vitamin E 268 mg (400 unit) capsule 268 mg PO DAILY Supplement 12/11/22
zinc acetate 50 mg (zinc) capsule 50 mg PO DAILY Supplement 12/11/22
acetaminophen 650 mg 1,300 mg PO [id number] PRN mild pain 07/03/24
tablet,extended release
allopurinol 100 mg tablet 100 mg PO BID Gout 07/03/24
insulin glargine 100 unit/mL (3 22 unit SC HS Diabetes 07/03/24
mL) subcutaneous pen (Lantus
Solostar U-100 Insulin)
insulin glargine 100 unit/mL (3 42 units SC DAILY Diabetes 07/03/24
mL) subcutaneous pen (Lantus
Solostar U-100 Insulin)
lisinopril 10 mg tablet 20 mg PO HS Blood Pressure 07/03/24
Vital Signs / Lab Results
Temp Pulse Resp BP Pulse Ox
98.6 F 96 18 170/85 94
07/04/24 07:30 07/04/24 07:30 07/04/24 07:30 07/04/24 07:30 07/04/24 07:30
07/04/24 07:11
07/04/24 07:11
Assessment / Plan
Ms Card is an 78F with right index finger cellulitis and necrosis
-continue vancomycin and zosyn as directed by infectious disease
-MRI right hand to assess for osteomyelitis in index finger
-local wound care
-patient will likely require an amputation of her right index finger at the level of any possible osteomyelitis after the acute infection is under control with antibiotics. After the necrosis declares itself and is stable, then the amputation can be
performed. She should remain on antibiotics until this occurs
-orthopaedics to follow while inpatient and assess wound
[2024-07-04] MEDS: OSCAL CAL 500 500 MG PO (10:52)
[2024-07-04] MEDS: ASPIR LOW (ENTERIC COATED) 81 MG PO ×2 (10:52→21:03)
[2024-07-04] MEDS: ZYLOPRIM 100 MG PO ×2 (10:53→21:03)
[2024-07-04] MEDS: PROTONIX 40 MG PO (10:53)
[2024-07-04] MEDS: THERAGRAN 1 TABLET PO (10:53)
[2024-07-04] MEDS: VITAMIN C 1000 MG PO ×2 (10:53→21:03)
[2024-07-04] MEDS: TYLENOL 1000 MG PO ×3 (10:54→21:01)
[2024-07-04] MEDS: B COMPLEX w/VITAMIN C 1 CAPLET PO (10:54)
[2024-07-04] MEDS: VITAMIN D3 (cholecalciferol) 50 MCG PO (10:55)
[2024-07-04] MEDS: ZESTRIL 20 MG PO ×2 (10:59→21:01)
[2024-07-04 11:07] LABS: Glycohemoglobin (HgbA1c) 8.5 % (4.0-5.6)
[2024-07-04 11:47] LABS: Glucose - Point of Care 182 mg/dl (70-99)
[2024-07-04] MEDS: NOVOLOG FLEXPEN-LOW RESISTANCE 1 UNITS SC (12:01)
[2024-07-04 16:55] LABS: Glucose - Point of Care 213 mg/dl (70-99)
[2024-07-04] MEDS: LOVENOX 40 MG SC (17:01)
[2024-07-04] MEDS: CRESTOR 20 MG PO (17:01)
[2024-07-04] MEDS: NOVOLOG FLEXPEN-LOW RESISTANCE 2 UNITS SC (17:01)
[2024-07-04 21:45] LABS: Glucose - Point of Care 273 mg/dl (70-99)
[2024-07-04] MEDS: LANTUS 0.22 UNITS SC ×2 (22:33→22:42)
[2024-07-05] VITALS (8 sets, daily range): BP systolic 140–171; BP diastolic 71–91; PULSE 65–92; O2SAT 95–96
[2024-07-05 01:25] LABS: Glucose - Point of Care 201 mg/dl (70-99)
[2024-07-05] MEDS: ZOSYN 50 IV ×4 (05:01→22:47)
[2024-07-05] MEDS: SYNTHROID 100 MCG PO (05:33)
[2024-07-05] MEDS: VANCOCIN 275 MG IV (05:33)
--- NOTE | 2024-07-05 07:08 | W.PN.HOSP.TC ---
Today's Communication/Plan
-
cont abx as per ID
glycemic control as per DM SLIP DUMPER
PT/OT
follow cultures
Assessment / Plan
Assessment / Plan
Physical Exam
General: No acute distress appears comfortable at this time
HEENT: NormoCephalic, Anicteric, Moist mucous membranes, PERRLA, [place] Conjunctivae and No Ptosis
Respiratory: Clear; No Wheezes, Rales or Rhonchi
Cardiac: S1/S2 and Regular Rhythm; No Murmur, Rub, Gallop or Peripheral Edema
GI: Soft, Non Tender, Non Distended, Normal Bowel Sounds and No Hepatosplenomegaly
Musculoskeletal: Right index finger with circumferential swelling and erythema along with distal tip skin missing with area of necrosis at tip level
Skin: Warm and Dry; No Rash or Jaundice
Neuro: AO x 3
Psych: Calm
78F IDDM HTN HLD Hypothyroid Diabetic Neuropathy right middle finger partial amputation here with swelling erythema right index finger concerning for osteomyelitis and ataxia suspected d/t peripheral neuropathy.
Right index finger cellulitis with open necrotic wound at the PIP level secondary osseous amputation concern for osteomyelitis and diabetic female
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
-Consult Ortho appreciated tentatively planned for amputation 07/10
-IV vancomycin discontinued MRS screen neg
-ID eval appreciated cont Zosyn, follow cultures, checking peripheral arterial arterial duplex
X-ray finger appreciated:
Soft tissue and osseous amputation at the level of the distal aspect of the distal phalanx of the right index finger. No radiopaque foreign body. No definitive abnormal osteolysis of the remaining portion of the distal phalanx.
MRI hand appreciated:
-Large amount of cellulitis about the second finger. Soft tissue wound of the distal second finger exposing a portion of the second distal phalanx, which contains bone marrow edema, most suspicious for the early changes of acute osteomyelitis.
-Bone marrow edema in the head of the third middle phalanx deep to the amputation to the third distal interphalangeal joint. This is more likely to be reactive
#Mild Pseudohyponatremia
monitor
#HTN urgency
Lisinopril increased from 20 mg daily to BID
monitor and titrate antihypertensive regimen as necessary
#Diabetes type 2�insulin-dependent Dx age 43
#Diabetic neuropathy bilateral hands
-Consult diabetic SLIP DUMPER appreciated
-Lantus 22 units at bedtime increased to BID
-resumed Januvia 100 mg daily
-low dose sliding scale
-A1c 8.5
-monitor and titrate Insulin regimen as necessary.
#Acute on chronic ambulatory dysfunction with dizziness
-Consult PT/OT appreciated outpt therapy
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
[place] with and without contrast: 06/18/2024
1. This examination demonstrates no focal hemodynamically significant stenosis, aneurysm or occlusion.
2. 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
MRI brain 06/18/2024
1. No acute intracranial abnormality noted.
2. There is mild atrophy, most pronounced within the bilateral mesial temporal lobes. Minimal microangiopathic changes.
3. Severe degenerative changes of the bilateral temporomandibular joints, more pronounced on the right.
CT brain 06/18/2024
1. No acute intracranial pathology.
2. Mild nonacute bilateral maxillary sinusitis.
#HLD
-Continue Crestor
#Hiatal hernia
#Chronic indigestion
-PPI prn Tums
#Hypothyroidism
Check TSH with free T4 reflex
-Continue levothyroxine 100 mcg p.o. daily
#Osteoarthritis
-Continue Tylenol 1000 mg 3 times daily
#Gout
Continue allopurinol 100 mg twice daily
#cataracts
DVT prophylaxis
Subcu Lovenox
Full code
Discussed with patient and patient's daughter Christal
I spent a total of 50 minutes with the patient or on the floor. More than 50% of this time involved counseling and coordination of care.
Anticipated Discharge: > 48 hours
Subjective/Interval History
-
Date of Service: July 05, 2024
Seen and examined at bedside in no acute distress sitting up comfortably in chair. Overall reports feeling well. Denies new acute issues at this time.
Objective Data
-
Labs:
Laboratory Results
07/05/24
07:02
WBC Pending
Hgb Pending
Hct Pending
Plt Count Pending
Sodium Pending
Potassium Pending
Chloride Pending
Carbon Dioxide Pending
BUN Pending
Creatinine Pending
Glucose Pending
Calcium Pending
Total Bilirubin Pending
AST Pending
ALT Pending
Alkaline Phosphatase Pending
Vital Signs:
Vital Signs
Temp Pulse Resp BP Pulse Ox
97.6 F 80 16 140/71 96
07/05/24 03:40 07/05/24 03:40 07/05/24 03:40 07/05/24 03:40 07/05/24 03:40
I&O
07/04/24 07/05/24 07/06/24
06:59 06:59 06:59
Intake Total 1215 / 1215 1335 / 1335
Balance 1215 / 1215 1335 / 1335
[2024-07-05 08:04] LABS: Glucose - Point of Care 153 mg/dl (70-99)
[2024-07-05] MEDS: TYLENOL 1000 MG PO ×3 (08:06→22:46)
[2024-07-05] MEDS: OSCAL CAL 500 500 MG PO (08:06)
[2024-07-05] MEDS: VITAMIN D3 (cholecalciferol) 50 MCG PO (08:06)
[2024-07-05] MEDS: PROTONIX 40 MG PO (08:07)
[2024-07-05] MEDS: B COMPLEX w/VITAMIN C 1 CAPLET PO (08:07)
[2024-07-05] MEDS: ZYLOPRIM 100 MG PO ×2 (08:07→20:47)
[2024-07-05] MEDS: VITAMIN C 1000 MG PO ×2 (08:07→20:47)
[2024-07-05] MEDS: ASPIR LOW (ENTERIC COATED) 81 MG PO ×2 (08:07→20:47)
[2024-07-05] MEDS: THERAGRAN 1 TABLET PO (08:08)
[2024-07-05] MEDS: ZESTRIL 20 MG PO ×2 (08:09→20:51)
[2024-07-05 08:10] LABS: % Basophils 0.6 % (0-2); % Eosinophils 4.4 % (0-6); % Immature Granulocytes 0.6 % (0-0.5); % Lymphocytes 20.8 % (20.5-51.1); % Monocytes 8.9 % (1.7-9.3); % Neutrophils 64.7 % (42.2-75.2); Absolute Basophils 0.1 10^3/uL (0-0.2); Absolute Eosinophils 0.4 10^3/uL (0-0.7); Absolute Immature Granulocytes 0.1 10^3/uL (0-0.05); Absolute Monocytes 0.9 10^3/uL (0.1-0.6); Absolute Neutrophils 6.4 10^3/uL (1.4-6.5); Hematocrit 32.8 % (37.0-47.0); Hemoglobin 11.2 g/dL (12.0-16.0); Mean Corp Hgb Conc. 34.1 g/dL (33.0-37.0); Mean Corpuscular Hgb 30.8 pg (27.0-31.0); Mean Corpuscular Volume 90.1 fL (81.0-99.0); Mean Platelet Volume 12.1 fL (7.4-10.4); Nucleated Red Blood Cells % 0 %; Platelet Count 323 10^3/uL (130-400); Red Blood Cell Count 3.64 10^6/uL (4.20-5.40); Red Cell Dist. Width 12.5 % (11.5-14.5); White Blood Cell Count 9.8 10^3/uL (4.8-10.8)
[2024-07-05] MEDS: NOVOLOG FLEXPEN-LOW RESISTANCE 1 UNITS SC ×2 (08:12→17:08)
--- NOTE | 2024-07-05 08:23 | W.PN.UPDATE ---
Update Note
Progress Note Update
Patient seen and evaluated by Orthopedic surgery this morning. We have been following her for right index finger cellulitis and necrosis. She underwent MRI yesterday.
MRI Impression: Large amount of cellulitis about the second finger. Soft tissue wound of the distal second finger exposing a portion of the second distal phalanx, which contains bone marrow edema, most suspicious for the early changes of acute
osteomyelitis. Bone marrow edema in the head of the third middle phalanx deep to the amputation to the third distal interphalangeal joint. This is more likely to be reactive, but recommend correlation for signs of infection or a soft tissue wound
at the distal tip of the amputated third finger.
On physical examination today, right index finger with swelling and erythema to middle phalanx. Necrotic skin at tip with autoamputation of the distal aspect of the phalanx. No expressible purulence noted. Active range of motion without pain.
Minimal tenderness to palpation. Right long finger with prior amputation distal phalanx level without erythema, necrosis, or tenderness to palpation.
Case was discussed with both Dr. Tian and Dr. Brantley. At this time, we will continue with IV antibiotics as directed by Infectious Disease. She will likely require amputation of her right index finger at the level of the early changes of acute
osteomyelitis. This will be pursued after the acute infection is under control with antibiotics. After the necrosis declares itself and is stable, then amputation can be performed. We will tentatively plan for surgical intervention this upcoming
07/10/2024 under the direction of Dr. Brantley. Orthopedic surgery will continue to follow.
[2024-07-05 08:31] LABS: ALT (SGPT) 18 U/L (0-35); AST (SGOT) 26 U/L (14-36); Albumin 3.6 g/dl (3.5-5.0); Alkaline Phosphatase 86 U/L (38-126); Blood Urea Nitrogen 16 mg/dl (7-17); Calcium 8.9 mg/dl (8.4-10.2); Carbon Dioxide 24 mmol/L (22-30); Chloride 96 mmol/L (98-107); Estimated Creatinine Clearance 52 ml/min; Glucose 149 mg/dl (70-99); Magnesium 1.3 mg/dl (1.6-2.3); Phosphorus 3.4 mg/dl (2.5-4.5); Potassium 4.5 mmol/L (3.5-5.1); Sodium 131 mmol/L (135-145); Total Bilirubin 0.6 mg/dl (0.2-1.3); Total Protein 6.3 g/dl (6.3-8.2); eGFR > 60.00
--- NOTE | 2024-07-05 09:05 | PHA.VAN.FU ---
Vancomycin Assessment / Plan
- Assessment
Renal Function: Stable
WBC's are: WNL
In the past 24 hrs, patient has been: Afebrile
Concomitant Antimicrobials: piperacillin/tazobactam
- Dosing Plan
Continue: Vanc 1250mg Q24H
- Monitoring Plan
Peak Level: 07/06 0900
Trough Level: 07/07 05:30
Monitoring Comments: levels to be drawn after 3rd maintenance dose
- Follow Up
Pharmacy will continue to follow.
Vancomycin Follow UP
- -
Patient Age: 78
Patient Sex: Female
Vancomycin Day #: 3
Indication: Bone And Joint
Requesting Provider: Jonathon Nichols
Pertinent Antimicrobial Allergies:
NKDA
Height / Weight:
Height 5 ft 4 in
Actual Weight 84.096 kg
Pertinent Past Medical History: BMI ~32, DM 2
- Vital Signs / Lab Results
Temp Pulse Resp BP Pulse Ox
97.5 F 86 17 162/85 100
07/05/24 07:54 07/05/24 08:09 07/05/24 07:54 07/05/24 08:09 07/05/24 07:54
Lab Results - Hematology
07/03/24 07/04/24 07/05/24
13:31 07:11 07:02
WBC 21.4 H 14.3 H 9.8
Lab Results - Chemistry
07/03/24 07/04/24 07/05/24
13:31 07:11 07:02
BUN 21 H 14 16
Creatinine 0.9 0.9 0.9
Estimated Creat Clear 52 52
Albumin 3.9 3.5 3.6
Microbiology Results
07/03/24 19:21 MRSA Screen - Final
Nose No Methicillin Resistant Staphylococcus aureus isolated.
--- NOTE | 2024-07-05 09:15 | PN.DE.MGMTRT ---
Insulin Management
- -
07/05/2024: Diabetes management Consult
78 year old female with PMH:IDDM HTN HLD Hypothyroid Diabetic Neuropathy right middle finger partial amputation here with swelling erythema right index finger concerning for osteomyelitis and ataxia suspected d/t peripheral neuropathy. Tentatively
planned for surgical intervention on 07/10/2024.
Was taking Lantus 42 units in AM and 26 units in PM and Current diabetes regimen includes: Lantus 22 units in AM and Januvia 100mg daily. A1C 8.5%, Cr 0.9, eGFR >60.
Pt awake, alert, sitting up in chair, pleasant, able to discuss diabetes mgt. Hab2pnz she is in the process of seeing an Endo as was advised by her PCP. She has a working meter at home and tests her blood sugars twice a day.
07/04 glucose range 101 to 213, HS blood sugar was 273, FBG 149 this AM.
Will change Lantus to 22 units BID. Cont Januvia 100mg.
Avoid aggressive insulin dosing to avoid hypoglycemia in this patient of advanced age.
Plan of care discussed with pt and pt's Nurse
Diabetes History
- -
Type of Diabetes: 2 requiring insulin
Pre-Admission Diabetes Regimen
07/05/24
07:02
Creatinine 0.9
Lab Results
Hemoglobin A1c 8.5 % (4.0-5.6) H 07/04/24 07:11
Insulin Pump Settings
IP Diabetes Regimen
07/04/24 07/04/24 07/04/24
11:46 16:54 21:44
Glucose
POC Glucose 182 H 213 H 273 H
07/05/24 07/05/24 07/05/24
01:25 07:02 08:02
Glucose 149 H
POC Glucose 201 H 153 H
Patient Education
[2024-07-05] MEDS: JANUVIA 100 MG PO (09:58)
[2024-07-05] MEDS: LANTUS 0.22 UNITS SC ×2 (09:58→22:46)
--- NOTE | 2024-07-05 11:01 | CON.ID ---
Addendum entered and electronically signed by Daniela Marin MD 07/05/24 15:39:
I personally performed a history and physical exam of the patient and discussed management with the resident. I reviewed the resident's note and agree with the documented findings and plan of care HPI/CC.
Exam: Erythema and edema entire right pointer finger; at tuft + necrosis with central small wound probes to bone, pus expressed
# R 2nd finger cellulitis, necrosis with clinical osteo, confirmed by MRI
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
# Leukocytosis improving
# DM with neuropathy, A1c 8.5
- Ordered UE peripheral arterial duplex to evaluate for arterial insufficiency
- Although no sxs to suggest scleroderma/CREST, Raynauds, check CM with reflex
- Pus expressed from wound and sent for aerobic, anaerobic cx
- Agree with finger amputation for surgical cure. Scheduled for 07/10.
- Continue Zosyn
- DC Vancomycin, MRSA screen negative.
-Follow wbc.
Original Note:
Consultation
-
Date/Time Consultation Requested: 07/04/2024 14:24
Date/Time Consultation Performed: 07/05/2024 11:00
Requesting Provider: Nancie Rivera MD
Performing Provider: Daniela Marin MD
Reason for Consultation: Right index finger osteomyelitis
Chief Complaint / Past History
History of Present Illness
This is an 78-year-old female with history of type 2 diabetes mellitus, diabetic neuropathy of bilateral hands, who presented to ER 07/03/2024 for complaints of right index finger swelling and erythema ongoing for the past 5 days. The patient
reports she had an open wound to the distal end of the right index finger, secondary to a cut with a kitchen knife ongoing for several months. She initially placed a bandage on the wound, then afterwards wrapped it in the wound wet bag with no
complaints afterwards. Two weeks ago, the nail fell off while she was filing it, she noticed a black discoloration and drainage prompting her to come to the ER for evaluation. She was admitted to the hospital started on vancomycin and Zosyn.
Today, patient states she does not think the antibiotics are working, as the swelling and erythema is still present. On presentation, evaluation with an x-ray showed Soft tissue and osseous amputation at the level of the distal aspect of the distal
phalanx of the right index finger. No radiopaque foreign body. No definitive abnormal osteolysis of the remaining portion of the distal phalanx. Further evaluation with an MRI showed Large amount of cellulitis about the second finger. Soft tissue
wound of the distal second finger exposing a portion of the second distal phalanx, which contains bone marrow edema, most suspicious for the early changes of acute osteomyelitis. Laboratory on presentation showed WBC 21.4. No reported fever since
admission.
Patient with history of prior loss of right third finger at the distal phalanx level. She reports was NO amputation done to the right third finger. Finger fell off on its own without any intervention from a medical provider.
Past History
Past Medical History: Other (Type 2 diabetes mellitus, diabetic neuropathy bilateral hands, hypertension, hyperlipidemia, haital hernia, chronic indigestion, hypothyroidism, osteoarthritis, cataracts, gout of right hand)
Past Surgical History: Other (Left vein stripping, cataract extraction 07/26/2013, right total knee replacement, )
Allergy History:
No Known Allergies Allergy (Verified 07/03/24 11:18)
Current Antibiotics:
Zosyn
Vancomycin
Social History
Tobacco: Non-Smoker
Alcohol: Occasional
Drug: None
Personal:
Living: With Family
Family History
Family History: Not Pertinent
Review of Systems
Review of Systems
General: Negative Fever or Chills
HEENT: Negative Stiff Neck
Cardiovascular: Negative Dyspnea
Hematologic: Negative Bleeding Problems
Skin / Hair / Nails: Nail Changes
Vital Signs
Temp Pulse Resp BP Pulse Ox
97.5 F 91 17 158/91 97
07/05/24 10:56 07/05/24 10:56 07/05/24 10:56 07/05/24 10:56 07/05/24 10:56
Physical Exam
Physical Exam
Constitutional: No Acute Distress
Eyes: No Conjunctival Hemorrhage
Cardiovascular: Regular Rate and S1/S2
Pulmonary: Clear
Gastrointestinal: Soft, Non Tender, Non Distended and Normal Bowel Sounds
Extremities: Other (Swelling and erythema of right index finger with near loss of distal phalanx); Negative Splinter Hemorrhage or [place] Lesions
Neurological: AO x 3
Lab / Diagnostic Study Results
07/05/24 07:02
07/05/24 07:02
Abs Immat Gran (auto) 0.1 10^3/uL (0-0.05) H 07/05/24 07:02
Absolute Neuts (auto) 6.4 10^3/uL (1.4-6.5) 07/05/24 07:02
Absolute Lymphs (auto) 2.0 10^3/uL (1.2-3.4) 07/05/24 07:02
Absolute Monos (auto) 0.9 10^3/uL (0.1-0.6) H 07/05/24 07:02
Absolute Basos (auto) 0.1 10^3/uL (0-0.2) 07/05/24 07:02
Immature Gran % 0.6 % (0-0.5) H 07/05/24 07:02
Neutrophils % 64.7 % (42.2-75.2) 07/05/24 07:02
Lymphocytes % 20.8 % (20.5-51.1) 07/05/24 07:02
Monocytes % 8.9 % (1.7-9.3) 07/05/24 07:02
Eosinophils % 4.4 % (0-6) 07/05/24 07:02
Basophils % 0.6 % (0-2) 07/05/24 07:02
Ur Squamous Epith Cells 11-15 /LPF (Few) 07/03/24 22:36
Microbiology Results
Micro:
07/03/24 22:36 Urine Culture - Final
Urine NO GROWTH
07/03/24 19:21 MRSA Screen - Final
Nose No Methicillin Resistant Staphylococcus aureus isolated.
Upper extremity MRI 06/26/2024; Large amount of cellulitis about the second finger. Soft tissue wound of the distal second finger exposing a portion of the second distal phalanx, which contains bone marrow edema, most suspicious for the early
changes of acute osteomyelitis. Bone marrow edema in the head of the third middle phalanx deep to the amputation to the third distal interphalangeal joint. This is more likely to be reactive, but recommend correlation for signs of infection or a
soft tissue wound at the distal aspect of the amputated third finger.
Finger x-ray 07/03/2024: Soft tissue and osseous amputation at the level of the distal aspect of the distal phalanx of the right index finger. No radiopaque foreign body. No definitive abnormal osteolysis of the remaining portion of the distal
phalanx.
Assessment / Plan
Assessment/plan
#Acute osteomyelitis
#Right index finger with swelling, erythema and purulence
#History of spontaneous loss of right third finger at the distal phalanx level after infection
-Leukocytosis on presentation, now downtrending with WBC 9.8
-Initiated on vancomycin and Zosyn
-MRSA screen negative
-Will D/C vancomycin, continue on Zosyn (D3)
-Wound culture of right finger (aerobic/anaerobic)
-Check CM for rheumatological etiology.
-Monitor WBC, temperature.
-Follow clinically
-Ortho will plan for surgical intervention 07/10.
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
T2DM
Diabetic neuropathy bilateral hands
Hypertension
Hyperlipidemia
Hiatal hernia
[2024-07-05 11:30] LABS: Glucose - Point of Care 303 mg/dl (70-99)
[2024-07-05] MEDS: NOVOLOG FLEXPEN-LOW RESISTANCE 4 UNITS SC (12:27)
[2024-07-05 16:15] LABS: Uric Acid 1.8 mg/dl (2.5-6.2)
[2024-07-05 16:41] LABS: Glucose - Point of Care 176 mg/dl (70-99)
[2024-07-05] MEDS: CRESTOR 20 MG PO (17:16)
[2024-07-05] MEDS: LOVENOX 40 MG SC (17:16)
--- NOTE | 2024-07-05 17:40 | CM ---
Alert awake oriented patient who lives with her Lee who lives in a 2 story home with 0 steps to enter and bed bathroom on first floor. She is independent in all activities of daily living.Offered VN she declined.
[facility]
Never had VN/SNF
Pharmacy [facility] [place]
PCP Dr Gordon
PLAN Home no needs
[2024-07-05 21:40] LABS: Glucose - Point of Care 264 mg/dl (70-99)
[2024-07-06] VITALS (7 sets, daily range): BP systolic 138–165; BP diastolic 68–92
[2024-07-06] MEDS: ZOSYN 50 IV ×3 (04:35→17:05)
[2024-07-06] MEDS: SYNTHROID 100 MCG PO (05:40)
[2024-07-06 07:20] LABS: % Basophils 0.8 % (0-2); % Eosinophils 6.9 % (0-6); % Lymphocytes 26.9 % (20.5-51.1); % Neutrophils 55.4 % (42.2-75.2); Absolute Basophils 0.1 10^3/uL (0-0.2); Absolute Eosinophils 0.6 10^3/uL (0-0.7); Absolute Immature Granulocytes 0.1 10^3/uL (0-0.05); Absolute Lymphocytes 2.3 10^3/uL (1.2-3.4); Absolute Monocytes 0.8 10^3/uL (0.1-0.6); Absolute Neutrophils 4.8 10^3/uL (1.4-6.5); Hematocrit 29.7 % (37.0-47.0); Hemoglobin 10.5 g/dL (12.0-16.0); Mean Corp Hgb Conc. 35.4 g/dL (33.0-37.0); Mean Corpuscular Hgb 31.3 pg (27.0-31.0); Mean Corpuscular Volume 88.4 fL (81.0-99.0); Mean Platelet Volume 11.8 fL (7.4-10.4); Nucleated Red Blood Cells % 0 %; Platelet Count 324 10^3/uL (130-400); Red Blood Cell Count 3.36 10^6/uL (4.20-5.40); Red Cell Dist. Width 12.3 % (11.5-14.5); White Blood Cell Count 8.7 10^3/uL (4.8-10.8)
[2024-07-06 07:57] LABS: ALT (SGPT) 17 U/L (0-35); AST (SGOT) 22 U/L (14-36); Albumin 3.3 g/dl (3.5-5.0); Alkaline Phosphatase 69 U/L (38-126); Blood Urea Nitrogen 17 mg/dl (7-17); Calcium 8.7 mg/dl (8.4-10.2); Carbon Dioxide 26 mmol/L (22-30); Chloride 95 mmol/L (98-107); Estimated Creatinine Clearance 43 ml/min; Glucose 114 mg/dl (70-99); Magnesium 1.4 mg/dl (1.6-2.3); Phosphorus 3.9 mg/dl (2.5-4.5); Potassium 4.3 mmol/L (3.5-5.1); Sodium 130 mmol/L (135-145); Total Bilirubin 0.3 mg/dl (0.2-1.3); Total Protein 5.9 g/dl (6.3-8.2)
[2024-07-06 08:15] LABS: Glucose - Point of Care 113 mg/dl (70-99)
[2024-07-06] MEDS: NOVOLOG FLEXPEN-LOW RESISTANCE SC ×2 (08:30→16:58)
[2024-07-06] MEDS: VITAMIN C 1000 MG PO ×2 (08:31→21:08)
[2024-07-06] MEDS: ASPIR LOW (ENTERIC COATED) 81 MG PO ×2 (08:31→21:09)
[2024-07-06] MEDS: OSCAL CAL 500 500 MG PO (08:31)
[2024-07-06] MEDS: VITAMIN D3 (cholecalciferol) 50 MCG PO (08:31)
[2024-07-06] MEDS: TYLENOL 1000 MG PO ×3 (08:31→21:09)
[2024-07-06] MEDS: B COMPLEX w/VITAMIN C 1 CAPLET PO (08:31)
[2024-07-06] MEDS: ZYLOPRIM 100 MG PO ×2 (08:31→21:08)
[2024-07-06] MEDS: PROTONIX 40 MG PO (08:31)
[2024-07-06] MEDS: JANUVIA 100 MG PO (08:31)
[2024-07-06] MEDS: ZESTRIL 20 MG PO ×2 (08:32→21:14)
[2024-07-06] MEDS: THERAGRAN 1 TABLET PO (08:32)
[2024-07-06] MEDS: LANTUS 0.22 UNITS SC ×2 (08:32→21:15)
--- NOTE | 2024-07-06 09:03 | W.PN.HOSP.TC ---
Today's Communication/Plan
-
cont abx as per ID
glycemic control
blood pressure control
replete Mg
Assessment / Plan
Assessment / Plan
Physical Exam
General: No acute distress appears comfortable at this time
HEENT: NormoCephalic, Anicteric, Moist mucous membranes, PERRLA, [place] Conjunctivae and No Ptosis
Respiratory: Clear; No Wheezes, Rales or Rhonchi
Cardiac: S1/S2 and Regular Rhythm; No Murmur, Rub, Gallop or Peripheral Edema
GI: Soft, Non Tender, Non Distended, Normal Bowel Sounds and No Hepatosplenomegaly
Musculoskeletal: Right index finger with circumferential swelling and erythema along with distal tip skin missing with area of necrosis at tip level
Skin: Warm and Dry; No Rash or Jaundice
Neuro: AO x 3
Psych: Calm
78F IDDM HTN HLD Hypothyroid Diabetic Neuropathy right middle finger partial amputation here with swelling erythema right index finger concerning for osteomyelitis and ataxia suspected d/t peripheral neuropathy.
Right index finger cellulitis with open necrotic wound at the PIP level secondary osseous amputation concern for osteomyelitis and diabetic female
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
-Consult Ortho appreciated tentatively planned for amputation 07/10
-IV vancomycin discontinued MRS screen neg
-ID eval appreciated cont Zosyn, follow cultures, checking peripheral arterial arterial duplex
Upper ext arterial duplex appreciated:
1. Right wrist brachial index measures 0.97. Right ankle-brachial index 1.0. No large vessel arterial stenosis demonstrated within the right upper extremity to the level of the radial and ulnar arteries.
2. Left finger brachial index 1.01, within normal limits. No significant stenosis demonstrated within the left upper extremity arteries.
X-ray finger appreciated:
Soft tissue and osseous amputation at the level of the distal aspect of the distal phalanx of the right index finger. No radiopaque foreign body. No definitive abnormal osteolysis of the remaining portion of the distal phalanx.
MRI hand appreciated:
-Large amount of cellulitis about the second finger. Soft tissue wound of the distal second finger exposing a portion of the second distal phalanx, which contains bone marrow edema, most suspicious for the early changes of acute osteomyelitis.
-Bone marrow edema in the head of the third middle phalanx deep to the amputation to the third distal interphalangeal joint. This is more likely to be reactive
#Mild Pseudohyponatremia
monitor
#Hypomagnesemia
monitor and replete as necessary
#HTN urgency
Lisinopril increased from 20 mg daily to BID, cont
monitor and titrate antihypertensive regimen as necessary
#Diabetes type 2�insulin-dependent Dx age 43
#Diabetic neuropathy bilateral hands
-Consult diabetic MAGENTO DEVELOPER appreciated
-Lantus 22 units at bedtime increased to BID
-resumed Januvia 100 mg daily
-low dose sliding scale
-A1c 8.5
-monitor and titrate Insulin regimen as necessary.
#Acute on chronic ambulatory dysfunction with dizziness
-Consult PT/OT appreciated outpt therapy
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
MA [place] with and without contrast: 06/18/2024
1. This examination demonstrates no focal hemodynamically significant stenosis, aneurysm or occlusion.
2. 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
MRI brain 06/18/2024
1. No acute intracranial abnormality noted.
2. There is mild atrophy, most pronounced within the bilateral mesial temporal lobes. Minimal microangiopathic changes.
3. Severe degenerative changes of the bilateral temporomandibular joints, more pronounced on the right.
CT brain 06/18/2024
1. No acute intracranial pathology.
2. Mild nonacute bilateral maxillary sinusitis.
#HLD
-Continue Crestor
#Hiatal hernia
#Chronic indigestion
-PPI prn Tums
#Hypothyroidism
Check TSH with free T4 reflex
-Continue levothyroxine 100 mcg p.o. daily
#Osteoarthritis
-Continue Tylenol 1000 mg 3 times daily
#Gout
Continue allopurinol 100 mg twice daily
#cataracts
DVT prophylaxis
Subcu Lovenox
Full code
Discussed with patient and patient's daughter Christal
I spent a total of 45 minutes with the patient or on the floor. More than 50% of this time involved counseling and coordination of care.
Anticipated Discharge: > 48 hours
Subjective/Interval History
-
Date of Service: July 06, 2024
no acute distress sitting up comfortably in chair. Denies new acute issues.
Objective Data
-
Labs:
Laboratory Results
07/06/24
06:07
WBC 8.7
Hgb 10.5 L
Hct 29.7 L
Plt Count 324
Sodium 130 L
Potassium 4.3
Chloride 95 L
Carbon Dioxide 26
BUN 17
Creatinine 1.1 H
Glucose 114 H
Calcium 8.7
Total Bilirubin 0.3
AST 22
ALT 17
Alkaline Phosphatase 69
Vital Signs:
Vital Signs
Temp Pulse Resp BP Pulse Ox
97.8 F 77 18 144/68 97
07/06/24 07:10 07/06/24 08:32 07/06/24 07:10 07/06/24 08:32 07/06/24 07:10
I&O
07/05/24 07/06/24 07/07/24
06:59 06:59 06:59
Intake Total 1335 / 1335 1090 / 1090
Balance 1335 / 1335 1090 / 1090
--- NOTE | 2024-07-06 09:21 | W.PN.UPDATE ---
Update Note
Progress Note Update
Patient seen and evaluated by Orthopedic surgery this morning. Patient resting comfortably in bedside chair. Overall, endorses slight improvement, especially with warmth. Denies any constitutional symptoms.
Assessment: RIGHT index finger cellulitis, necrosis with acute osteomyelitis.
Pus expressed from wound and sent for aerobic and anaerobic culture by ID yesterday. Currently on Zosyn. Preliminary gram stain with moderate WBC and rare gram positive cocci. Anaerobic culture pending.
Plan for partial amputation RIGHT index finger Monday07/10/[address] Brantley. Consent obtained and placed in patient's chart. NPO pMN 07/09/2024. Continue with IV Abx per ID. Orthopedic surgery will continue to follow.
[2024-07-06 12:14] LABS: Glucose - Point of Care 157 mg/dl (70-99)
[2024-07-06] MEDS: NOVOLOG FLEXPEN-LOW RESISTANCE 1 UNITS SC (13:40)
[2024-07-06] MEDS: MAGNESIUM SULFATE 100 IV (13:45)
[2024-07-06 16:53] LABS: Glucose - Point of Care 143 mg/dl (70-99)
[2024-07-06] MEDS: LOVENOX 40 MG SC (17:04)
[2024-07-06] MEDS: CRESTOR 20 MG PO (17:05)
[2024-07-06 21:13] LABS: Glucose - Point of Care 236 mg/dl (70-99)
[2024-07-07] VITALS (7 sets, daily range): BP systolic 122–184; BP diastolic 58–94
[2024-07-07] MEDS: ZOSYN 50 IV ×3 (00:31→10:41)
[2024-07-07 06:19] LABS: Glucose - Point of Care 103 mg/dl (70-99)
[2024-07-07] MEDS: SYNTHROID 100 MCG PO (06:30)
--- NOTE | 2024-07-07 07:44 | W.PN.HOSP.TC ---
Today's Communication/Plan
-
zosyn switched to cefazolin as per ID
blood pressure control
glycemic control
Vascular eval requested
tentatively planned for rt index finger osteo amputation MonJul 10
Assessment / Plan
Assessment / Plan
Physical Exam
General: No acute distress appears comfortable at this time
HEENT: NormoCephalic, Anicteric, Moist mucous membranes, PERRLA, [place] Conjunctivae and No Ptosis
Respiratory: Clear; No Wheezes, Rales or Rhonchi
Cardiac: S1/S2 and Regular Rhythm; No Murmur, Rub, Gallop or Peripheral Edema
GI: Soft, Non Tender, Non Distended, Normal Bowel Sounds and No Hepatosplenomegaly
Musculoskeletal: Right index finger with circumferential swelling and erythema along with distal tip skin missing with area of necrosis at tip level
Skin: Warm and Dry; No Rash or Jaundice
Neuro: AO x 3
Psych: Calm
78F IDDM HTN HLD Hypothyroid Diabetic Neuropathy right middle finger partial amputation here with swelling erythema right index finger concerning for osteomyelitis and ataxia suspected d/t peripheral neuropathy.
Right index finger cellulitis with open necrotic wound at the PIP level secondary osseous amputation concern for osteomyelitis and diabetic female
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
-Consult Ortho appreciated tentatively planned for amputation 07/10
-IV vancomycin discontinued MRS screen neg
-ID eval appreciated Zosyn switched to cefazolin with wound cx pos for MSSA
Upper ext arterial duplex appreciated:
1. Right wrist brachial index measures 0.97. Right ankle-brachial index 1.0. No large vessel arterial stenosis demonstrated within the right upper extremity to the level of the radial and ulnar arteries.
2. Left finger brachial index 1.01, within normal limits. No significant stenosis demonstrated within the left upper extremity arteries.
Vascular eval requested
X-ray finger appreciated:
Soft tissue and osseous amputation at the level of the distal aspect of the distal phalanx of the right index finger. No radiopaque foreign body. No definitive abnormal osteolysis of the remaining portion of the distal phalanx.
MRI hand appreciated:
-Large amount of cellulitis about the second finger. Soft tissue wound of the distal second finger exposing a portion of the second distal phalanx, which contains bone marrow edema, most suspicious for the early changes of acute osteomyelitis.
-Bone marrow edema in the head of the third middle phalanx deep to the amputation to the third distal interphalangeal joint. This is more likely to be reactive
#Mild Pseudohyponatremia
monitor
#Hypomagnesemia
monitor and replete as necessary
#HTN urgency
Lisinopril increased from 20 mg daily to BID, cont
monitor and titrate antihypertensive regimen as necessary
Hydralazine prn
#Diabetes type 2�insulin-dependent Dx age 43
#Diabetic neuropathy bilateral hands
-Consult diabetic DRAPERY CUTTER MACHINE appreciated
-Lantus 22 units at bedtime increased to BID
-resumed Januvia 100 mg daily
-low dose sliding scale
-A1c 8.5
-monitor and titrate Insulin regimen as necessary.
#Acute on chronic ambulatory dysfunction with dizziness
-Consult PT/OT appreciated outpt therapy
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
[place] with and without contrast: 06/18/2024
1. This examination demonstrates no focal hemodynamically significant stenosis, aneurysm or occlusion.
2. 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
MRI brain 06/18/2024
1. No acute intracranial abnormality noted.
2. There is mild atrophy, most pronounced within the bilateral mesial temporal lobes. Minimal microangiopathic changes.
3. Severe degenerative changes of the bilateral temporomandibular joints, more pronounced on the right.
CT brain 06/18/2024
1. No acute intracranial pathology.
2. Mild nonacute bilateral maxillary sinusitis.
#HLD
-Continue Crestor
#Hiatal hernia
#Chronic indigestion
-PPI prn Tums
#Hypothyroidism
Check TSH with free T4 reflex
-Continue levothyroxine 100 mcg p.o. daily
#Osteoarthritis
-Continue Tylenol 1000 mg 3 times daily
#Gout
Continue allopurinol 100 mg twice daily
#cataracts
PT/OT appreciated outpt therapy
DVT prophylaxis
Subcu Lovenox
Full code
Discussed with patient and patient's daughter Christal
I spent a total of 45 minutes with the patient or on the floor. More than 50% of this time involved counseling and coordination of care.
Anticipated Discharge: > 48 hours
Subjective/Interval History
-
Date of Service: July 07, 2024
No acute distress sitting up comfortably in chair. Overall reports feeling well. Denies new acute issues.
Objective Data
-
Labs:
Laboratory Results
07/07/24
07:22
WBC Pending
Hgb Pending
Hct Pending
Plt Count Pending
Sodium Pending
Potassium Pending
Chloride Pending
Carbon Dioxide Pending
BUN Pending
Creatinine Pending
Glucose Pending
Calcium Pending
Total Bilirubin Pending
AST Pending
ALT Pending
Alkaline Phosphatase Pending
Vital Signs:
Vital Signs
Temp Pulse Resp BP Pulse Ox
98.2 F 78 16 122/58 95
07/07/24 03:22 07/07/24 03:22 07/07/24 03:22 07/07/24 03:22 07/07/24 03:22
I&O
07/06/24 07/07/24 07/08/24
06:59 06:59 06:59
Intake Total 1090 / 1090 1919
Balance 1090 / 1090 1919
[2024-07-07 08:03] LABS: % Basophils 0.7 % (0-2); % Eosinophils 4.4 % (0-6); % Immature Granulocytes 0.5 % (0-0.5); % Lymphocytes 20.5 % (20.5-51.1); % Monocytes 9.7 % (1.7-9.3); % Neutrophils 64.2 % (42.2-75.2); Absolute Basophils 0.1 10^3/uL (0-0.2); Absolute Eosinophils 0.4 10^3/uL (0-0.7); Absolute Lymphocytes 1.8 10^3/uL (1.2-3.4); Absolute Monocytes 0.8 10^3/uL (0.1-0.6); Absolute Neutrophils 5.5 10^3/uL (1.4-6.5); Hematocrit 32.5 % (37.0-47.0); Mean Corp Hgb Conc. 33.8 g/dL (33.0-37.0); Mean Corpuscular Hgb 30.1 pg (27.0-31.0); Mean Platelet Volume 11.1 fL (7.4-10.4); Nucleated Red Blood Cells % 0 %; Platelet Count 357 10^3/uL (130-400); Red Blood Cell Count 3.65 10^6/uL (4.20-5.40); Red Cell Dist. Width 12.5 % (11.5-14.5); White Blood Cell Count 8.5 10^3/uL (4.8-10.8)
[2024-07-07 08:25] LABS: Glucose - Point of Care 87 mg/dl (70-99)
[2024-07-07 08:38] LABS: ALT (SGPT) 22 U/L (0-35); AST (SGOT) 29 U/L (14-36); Albumin 3.6 g/dl (3.5-5.0); Alkaline Phosphatase 69 U/L (38-126); Blood Urea Nitrogen 15 mg/dl (7-17); Calcium 9.1 mg/dl (8.4-10.2); Carbon Dioxide 27 mmol/L (22-30); Chloride 96 mmol/L (98-107); Estimated Creatinine Clearance 43 ml/min; Glucose 87 mg/dl (70-99); Magnesium 2.1 mg/dl (1.6-2.3); Phosphorus 4.5 mg/dl (2.5-4.5); Potassium 4.5 mmol/L (3.5-5.1); Sodium 134 mmol/L (135-145); Total Bilirubin 0.3 mg/dl (0.2-1.3); Total Protein 6.4 g/dl (6.3-8.2)
[2024-07-07] MEDS: NOVOLOG FLEXPEN-LOW RESISTANCE SC ×3 (08:51→17:47)
[2024-07-07] MEDS: OSCAL CAL 500 500 MG PO (09:36)
[2024-07-07] MEDS: ASPIR LOW (ENTERIC COATED) 81 MG PO ×2 (09:36→20:17)
[2024-07-07] MEDS: ZYLOPRIM 100 MG PO ×2 (09:36→20:18)
[2024-07-07] MEDS: PROTONIX 40 MG PO (09:36)
[2024-07-07] MEDS: VISBIOME 2 CAP PO (09:36)
[2024-07-07] MEDS: VITAMIN D3 (cholecalciferol) 50 MCG PO (09:37)
[2024-07-07] MEDS: THERAGRAN 1 TABLET PO (09:37)
[2024-07-07] MEDS: B COMPLEX w/VITAMIN C 1 CAPLET PO (09:37)
[2024-07-07] MEDS: VITAMIN C 1000 MG PO ×2 (09:37→20:17)
[2024-07-07] MEDS: JANUVIA 100 MG PO (09:37)
[2024-07-07] MEDS: TYLENOL 1000 MG PO ×3 (09:37→21:57)
[2024-07-07] MEDS: LANTUS 0.22 UNITS SC (09:38)
[2024-07-07] MEDS: ZESTRIL 20 MG PO ×2 (09:38→20:17)
--- NOTE | 2024-07-07 10:08 | W.PN.UPDATE ---
Update Note
Progress Note Update
Patient seen and evaluated by Orthopedic surgery this morning. Patient resting comfortably in bedside chair. Denies any new complaints or concerns at this time.
Assessment: RIGHT index finger cellulitis, necrosis with acute osteomyelitis.
Pus expressed from wound and sent for aerobic and anaerobic culture by ID 07/05/2024. Currently on Zosyn. Preliminary wound culture revealing few S aureus-Methicillin Sensitive. Preliminary gram stain with moderate WBC, rare gram positive cocci. ABX
per ID.
Plan for partial amputation RIGHT index finger Monday07/10/[address] Brantley. Consent obtained and placed in patient's chart. NPO pMN 07/09/2024. Orthopedic surgery will continue to follow.
[2024-07-07 12:06] LABS: Glucose - Point of Care 113 mg/dl (70-99)
[2024-07-07] MEDS: ANCEF 10 IV ×2 (12:09→20:16)
--- NOTE | 2024-07-07 12:50 | W.PN.ID1 ---
Date of Service
Date of Service: July 07, 2024
Today's Communication
- start cefazolin, stopped zosyn
Assessment / Plan
Assessment/plan
#Acute osteomyelitis due to MSSA for amputation
#Right index finger with swelling, erythema and purulence
#History of spontaneous loss of right third finger at the distal phalanx level after infection
-aerobic culture: MSSA
-Check CM for rheumatological etiology - pending
- start cefazolin, stopped zosyn
-Monitor WBC, temperature.
-Follow clinically
-Ortho will plan for surgical intervention 07/10.
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
T2DM
Diabetic neuropathy bilateral hands
Hypertension
Hyperlipidemia
Hiatal hernia
Chief Complaint
-: Other (osteomyelitis)
Subjective / Review of Systems
afebrile
bp stable
no events
bloody drainage from the digit
Vital Signs / Physical Exam
Vital Signs
Vital Signs
Temp Pulse Resp BP Pulse Ox
98 F 73 16 155/79 98
07/07/24 11:21 07/07/24 11:21 07/07/24 11:21 07/07/24 11:21 07/07/24 11:21
Physical Exam
Constitutional: No Acute Distress
Cardiovascular: Regular Rate and S1/S2; Negative Murmur or Rub
Pulmonary: Clear and Symmetric; Negative Wheezes or Rales
Gastrointestinal: Soft, Non Tender, Non Distended and Normal Bowel Sounds
Skin: Warm and Dry; Negative Rash or Jaundice
Wound: Other (dressing with bloody drainage - deferred take down)
Objective Data
Lab Data
Lab Results
07/07/24 07:22
07/07/24 07:22
Estimated Creat Clear 43 ml/min 07/07/24 07:22
Total Bilirubin 0.3 mg/dl (0.2-1.3) 07/07/24 07:22
AST 29 U/L (14-36) 07/07/24 07:22
ALT 22 U/L (0-35) 07/07/24 07:22
Alkaline Phosphatase 69 U/L (38-126) 07/07/24 07:22
Most recent labs reviewed.
Micro Results:
07/05/24 14:35 Wound Culture - Preliminary
Finger - Right S aureus-Methicillin Sensitive
Gram Stain - Preliminary
07/05/24 14:35 Anaerobic Culture - Preliminary
Finger - Right Culture pending. Anaerobic cultures are examined after 3
days incubation. Additional information to follow.
07/03/24 22:36 Urine Culture - Final
Urine NO GROWTH
07/03/24 19:21 MRSA Screen - Final
Nose No Methicillin Resistant Staphylococcus aureus isolated.
Upper extremity MRI 06/26/2024; Large amount of cellulitis about the second finger. Soft tissue wound of the distal second finger exposing a portion of the second distal phalanx, which contains bone marrow edema, most suspicious for the early
changes of acute osteomyelitis. Bone marrow edema in the head of the third middle phalanx deep to the amputation to the third distal interphalangeal joint. This is more likely to be reactive, but recommend correlation for signs of infection or a
soft tissue wound at the distal aspect of the amputated third finger.
Finger x-ray 07/03/2024: Soft tissue and osseous amputation at the level of the distal aspect of the distal phalanx of the right index finger. No radiopaque foreign body. No definitive abnormal osteolysis of the remaining portion of the distal
phalanx.
Care Review
Plan reviewed with: Physician (Dr Rivera - billy)
[2024-07-07 16:39] LABS: Glucose - Point of Care 109 mg/dl (70-99)
[2024-07-07 17:05] LABS: ANA, IgG Reflex to HEp-2 None Detected (None Detected)
[2024-07-07] MEDS: CRESTOR 20 MG PO (17:50)
[2024-07-07] MEDS: LOVENOX SC (17:50)
[2024-07-07] MEDS: LOVENOX 40 MG SC (18:01)
[2024-07-07] MEDS: APRESOLINE 5 MG IV (21:51)
[2024-07-07 21:53] LABS: Glucose - Point of Care 130 mg/dl (70-99)
[2024-07-07] MEDS: LANTUS SC (22:06)
[2024-07-08] VITALS (7 sets, daily range): BP systolic 138–188; BP diastolic 82–107; PULSE 98; O2SAT 100
--- NOTE | 2024-07-08 02:00 | PTCARENOTE ---
Pt's HR on monitor up to 140s x2 after sitting up on side of bed. Pt asymptomatic. HR back down to 90s, NSR w/ PACs. x1 dose of hydralazine given at 2151 for elevated BP. PLASTICS DESIGN ENGINEER notified, instructed to hold hydralazine for now. Call galan within reach
and plan of care ongoing.
--- NOTE | 2024-07-08 03:16 | W.PN.UPDATE ---
Update Note
Progress Note Update
RN reports 2 episodes of self limiting brief ST to 140s with movement. Previously had no increased HR with movement. Pt did receive hydralazine for first time this evening. Poss could be episode of reflex tachycardia? Will dc hydralazine for now. Pt
asymptomatic during these episodes. Electrolytes in normal range.
[2024-07-08] MEDS: SYNTHROID 100 MCG PO (06:03)
[2024-07-08] MEDS: ANCEF 10 IV ×3 (06:03→21:01)
[2024-07-08 07:52] LABS: Glucose - Point of Care 82 mg/dl (70-99)
--- NOTE | 2024-07-08 08:09 | PN.DE.MGMTRT ---
Insulin Management
- -
07/08/2024: Diabetes management F/U:
78 year old female with PMH:IDDM HTN HLD Hypothyroid Diabetic Neuropathy right middle finger partial amputation here with swelling erythema right index finger concerning for osteomyelitis and ataxia suspected d/t peripheral neuropathy. Tentatively
planned for surgical intervention on 07/10/2024.
Was taking Lantus 42 units in AM and 26 units in PM and Current diabetes regimen includes: Lantus 22 units in AM and Januvia 100mg daily. A1C 8.5%, Cr 0.9, eGFR >60.
Pt awake, alert, sitting up in chair, pleasant, able to discuss diabetes mgt. - Clellan at bedside.
Pt c/o dry persistent cough, states she thinks it's a SE from her lisinopril and is asking me to address it with her primary team, pt's nurse was made aware of pt's c/o and requested to notify the hospitalist overlooking pt's care.
Otherwise, her glucose is stable and in range, premeal 87 to 113, FBG 82. Pt states that she refused her HS Lantus dose because she didn't eat much at dinner and that her blood sugar was only 130 @ HS. Informed pt that her blood sugars are running
low because she is on a clear liqid diet and is not eating like she normally does at home.
Will make no change to current regimen:- Lantus to 22 units BID and Januvia 100mg.
Avoid aggressive insulin dosing to avoid hypoglycemia in this patient of advanced age.
Plan of care discussed with pt and pt's Nurse
Diabetes History
- -
Type of Diabetes: 2 requiring insulin
Pre-Admission Diabetes Regimen
07/07/24
07:22
Creatinine 1.1 H
Lab Results
Hemoglobin A1c 8.5 % (4.0-5.6) H 07/04/24 07:11
Insulin Pump Settings
IP Diabetes Regimen
07/07/24 07/07/24 07/07/24
07:22 08:23 11:53
Glucose 87
POC Glucose 87 113 H
07/07/24 07/07/24 07/08/24
16:37 21:52 07:50
Glucose
POC Glucose 109 H 130 H 82
Patient Education
[2024-07-08] MEDS: NOVOLOG FLEXPEN-LOW RESISTANCE SC ×2 (08:11→12:33)
[2024-07-08] MEDS: LANTUS SC (08:11)
[2024-07-08] MEDS: TYLENOL 1000 MG PO ×3 (08:13→21:03)
[2024-07-08] MEDS: PROTONIX 40 MG PO (08:13)
[2024-07-08] MEDS: VITAMIN C 1000 MG PO ×2 (08:13→21:00)
[2024-07-08] MEDS: VISBIOME 2 CAP PO (08:13)
[2024-07-08] MEDS: ZYLOPRIM 100 MG PO ×2 (08:13→21:00)
[2024-07-08] MEDS: JANUVIA 100 MG PO (08:14)
[2024-07-08] MEDS: B COMPLEX w/VITAMIN C 1 CAPLET PO (08:14)
[2024-07-08] MEDS: THERAGRAN 1 TABLET PO (08:14)
[2024-07-08] MEDS: VITAMIN D3 (cholecalciferol) 50 MCG PO (08:14)
[2024-07-08] MEDS: ASPIR LOW (ENTERIC COATED) 81 MG PO ×2 (08:14→21:01)
[2024-07-08] MEDS: OSCAL CAL 500 500 MG PO (08:14)
[2024-07-08] MEDS: ZESTRIL 20 MG PO ×2 (08:15→21:00)
[2024-07-08 08:43] LABS: Hematocrit 36.7 % (37.0-47.0); Hemoglobin 12.8 g/dL (12.0-16.0); Mean Corp Hgb Conc. 34.9 g/dL (33.0-37.0); Mean Corpuscular Hgb 30.6 pg (27.0-31.0); Mean Corpuscular Volume 87.8 fL (81.0-99.0); Mean Platelet Volume 11.3 fL (7.4-10.4); Platelet Count 411 10^3/uL (130-400); Red Blood Cell Count 4.18 10^6/uL (4.20-5.40); Red Cell Dist. Width 12.6 % (11.5-14.5); White Blood Cell Count 9.7 10^3/uL (4.8-10.8)
--- NOTE | 2024-07-08 08:46 | W.PN.HOSP.TC ---
Today's Communication/Plan
-
see bold
Assessment / Plan
Assessment / Plan
78F IDDM HTN HLD Hypothyroid Diabetic Neuropathy right middle finger partial amputation here with swelling erythema right index finger concerning for osteomyelitis and ataxia suspected d/t peripheral neuropathy.
Right index finger cellulitis with open necrotic wound at the PIP level secondary osseous amputation concern for osteomyelitis and diabetic female
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
-Appreciate orthopedic surgery input, plan for amputation 07/10
-MRSA screen negative, statin post IV vancomycin
-Appreciate ID input, status post IV Zosyn, continue IV Ancef with wound cx pos for MSSA
MRI hand appreciated:
-Large amount of cellulitis about the second finger. Soft tissue wound of the distal second finger exposing a portion of the second distal phalanx, which contains bone marrow edema, most suspicious for the early changes of acute osteomyelitis.
-Bone marrow edema in the head of the third middle phalanx deep to the amputation to the third distal interphalangeal joint. This is more likely to be reactive
#Mild Pseudohyponatremia
monitor
#Hypomagnesemia
monitor and replete as necessary
#HTN urgency
Blood pressure improved with increasing lisinopril from 20 mg daily to twice a day
Hydralazine prn
#Diabetes type 2�insulin-dependent Dx age 43
#Diabetic neuropathy bilateral hands
-A1c 8.5
-Lantus 22 units at bedtime increased to BID
-resumed Januvia 100 mg daily
-Continue insulin adjustments as per diabetes [employer]EL[employer]
#Acute on chronic ambulatory dysfunction with dizziness
-PT/OT rec outpt therapy
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
[place] with and without contrast: 06/18/2024
1. This examination demonstrates no focal hemodynamically significant stenosis, aneurysm or occlusion.
2. 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
MRI brain 06/18/2024
1. No acute intracranial abnormality noted.
2. There is mild atrophy, most pronounced within the bilateral mesial temporal lobes. Minimal microangiopathic changes.
3. Severe degenerative changes of the bilateral temporomandibular joints, more pronounced on the right.
CT brain 06/18/2024
1. No acute intracranial pathology.
2. Mild nonacute bilateral maxillary sinusitis.
#HLD
-Continue Crestor
#Hiatal hernia
#Chronic indigestion
-PPI prn Tums
#Hypothyroidism
-Continue levothyroxine 100 mcg p.o. daily
#Osteoarthritis
-Continue Tylenol 1000 mg 3 times daily
#Gout
Continue allopurinol 100 mg twice daily
#cataracts
PT/OT appreciated outpt therapy
DVT prophylaxis - Subcu Lovenox
Full code
Updated at bedside 07/08
Total time spent to see the patient on the floor, examine the patient, review data and lab results, discuss treatment plan with patient, nursing staff around 37 minutes.
Physical Exam
General: No acute distress appears comfortable at this time
HEENT: NormoCephalic, Anicteric, Moist mucous membranes, PERRLA, [place] Conjunctivae and No Ptosis
Respiratory: Clear; No Wheezes, Rales or Rhonchi
Cardiac: S1/S2 and Regular Rhythm; No Murmur, Rub, Gallop or Peripheral Edema
GI: Soft, Non Tender, Non Distended, Normal Bowel Sounds and No Hepatosplenomegaly
Musculoskeletal: Right index finger with circumferential swelling and erythema along with distal tip skin missing with area of necrosis at tip level
Neuro: AO x 3
.
Anticipated Discharge: > 48 hours
Subjective/Interval History
-
Date of Service: July 08, 2024
Patient denies right index finger pain. No fever, no vomiting. She does report itching. No chest pain, no shortness of breath.
Objective Data
-
Labs:
Laboratory Results
07/08/24
08:03
WBC 9.7
Hgb 12.8
Hct 36.7 L
Plt Count 411 H
Sodium Pending
Potassium Pending
Chloride Pending
Carbon Dioxide Pending
BUN Pending
Creatinine Pending
Glucose Pending
Calcium Pending
Vital Signs:
Vital Signs
Temp Pulse Resp BP Pulse Ox
97.5 F 95 18 164/82 95
07/08/24 07:15 07/08/24 08:15 07/08/24 07:15 07/08/24 08:15 07/08/24 07:15
I&O
07/07/24 07/08/24 07/09/24
06:59 06:59 06:59
Intake Total 1919 660 / 660
Balance 1919 660 / 660
--- NOTE | 2024-07-08 09:04 | W.PN.UPDATE ---
Update Note
Progress Note Update
Patient seated comfortably at the bedside enjoying breakfast. With right index finger cellulitis, necrosis, and osteomyelitis. Plan for partial amputation of the right index finger on Monday under the direction of Dr. Brantley. She is to be NPO
pMN for Monday surgery. OR aware. Surgical consent has been obtained. Continue with IV Ancef for MSSA + cultures.
[2024-07-08 09:20] LABS: Blood Urea Nitrogen 14 mg/dl (7-17); Calcium 9.7 mg/dl (8.4-10.2); Carbon Dioxide 27 mmol/L (22-30); Chloride 97 mmol/L (98-107); Estimated Creatinine Clearance 52 ml/min; Glucose 68 mg/dl (70-99); Magnesium 1.7 mg/dl (1.6-2.3); Potassium 4.5 mmol/L (3.5-5.1); Sodium 136 mmol/L (135-145); eGFR > 60.00
[2024-07-08 09:52] LABS: TSH Reflex To Free T4 1.79 uIU/ml (0.47-4.68)
[2024-07-08] MEDS: LANTUS 0.22 UNITS SC ×2 (09:57→21:01)
--- NOTE | 2024-07-08 10:58 | CON.VAS ---
Addendum entered and electronically signed by Sandip Baez III, MD 07/08/24 16:54:
This patient was seen and examined with ANGELITA Loaiza. I agree with the history and physical exam as well as the assessment and plan. I have the following additions:
Consulted for vascular evaluation given presence of right upper extremity digital wounds/infection
On physical exam she has warm right hand and fingers
Palpable brachial, radial and ulnar pulses in the right upper extremity
Arterial studies reviewed which do not demonstrate any evidence of arterial occlusive disease in the upper extremity.
There may be no underlying upper extremity arterial occlusive disease issue present here, however to be complete we recommend obtaining transthoracic echocardiogram and CT angiogram of the chest to rule out central arterial disease or potential
thrombo-embolic source.
Signed:
Sandip Baez III, MD
[facility] Surgery
[phone] (cell)
Original Note:
Consultation
Consultation Request
Date/Time Consultation Performed: 07/08/24
Requesting Provider: Hospitalist
Performing Provider: Daniela Marquis KARATE BLACK BELT-C for Sandip Baez III
Reason for Consultation: Right index finger osteomyelitis
Medical History
-
Chief Complaint: Right index finger osteomyelitis
History of Present Illness:
This is a 78 year old female with significant past medical history for diabetes, hypothyroidism, hypertension, and hyperlipidemia who presented to [facility] on 07/03/2024 with reports of ongoing infection at right hand index finger tip
following unknown injury to her finger nail. Plan is for orthopedics to preform partial amputation. Vascular surgery has been consulted for peripheral arterial disease, arterial duplex obtained which indicates no large vessel occlusions. Patient
denies hand pain or coolness to hand. Denies arrhythmias.
Past Medical History
Past Medical History: HTN, Hypothyroidism, IDDM and Other (diabetic neuropathy, HLD, hiatal hernia, osteoarthritis, cataracts )
Past Surgical History: Other (Left vein stripping, Cataract extraction 07/26/2013, Left vein stripping, [place] tooth extraction, Right total knee replacement 01/28/2019, Right middle finger partial amputation secondary to infection)
Social History
Tobacco: Non-Smoker
Alcohol: Occasional
Drug: None
Personal:
Living: With Family
Allergies / Home Medications
Allergy/AdvReac Type Severity Reaction Status Date / Time
No Known Allergies Allergy Verified 07/03/24 11:18
�Medication �Instructions �Recorded �Confirmed �Type
ascorbic acid (vitamin C) 1,000 mg 1,000 mg PO BID Supplement 11/13/18 07/03/24 History
tablet (Vitamin C)
cholecalciferol (vitamin D3) 50 50 mcg PO DAILY Supplement ##0 11/13/18 07/03/24 History
mcg (2,000 unit) tablet (Vitamin
D3)
levothyroxine 100 mcg tablet 100 mcg PO DAILY Thyroid 11/13/18 07/03/24 History
rosuvastatin 20 mg tablet 20 mg PO QPM High Cholesterol 11/13/18 07/03/24 History
vitamin B complex 1 tab PO DAILY Supplement 11/13/18 07/03/24 History
aspirin 81 mg tablet,delayed 81 mg PO BID Blood Clot 12/11/22 07/03/24 History
release Prevention/Tx
calcium carbonate (Oyster Shell 500 mg PO DAILY Supplement 12/11/22 07/03/24 History
Calcium)
cinnamon bark 500 mg capsule 500 mg PO DAILY Supplement ##0 12/11/22 07/03/24 History
(Cinnamon)
elderberry fruit 350 mg capsule 350 mg PO BID Supplement 12/11/22 07/03/24 History
glucosamine-chondroitin 500 mg-400 1 tab PO BID Supplement ##0 12/11/22 07/03/24 History
mg tablet
multivitamin 1 tab PO DAILY Supplement 12/11/22 07/03/24 History
omega 8-wek-gyq-fish oil 1,000 mg 1 cap PO DAILY Supplement 12/11/22 07/03/24 History
(120 mg-180 mg) capsule (Fish Oil)
sitagliptin phosphate 100 mg 100 mg PO DAILY Diabetes 12/11/22 07/03/24 History
tablet (Januvia)
turmeric 400 mg capsule 400 mg PO DAILY Supplement 12/11/22 07/03/24 History
vitamin E 268 mg (400 unit) capsule 268 mg PO DAILY Supplement 12/11/22 07/03/24 History
zinc acetate 50 mg (zinc) capsule 50 mg PO DAILY Supplement 12/11/22 07/03/24 History
acetaminophen 650 mg 1,300 mg PO [id number] PRN mild pain 07/03/24 07/03/24 History
tablet,extended release
allopurinol 100 mg tablet 100 mg PO BID Gout 07/03/24 07/03/24 History
insulin glargine 100 unit/mL (3 22 unit SC HS Diabetes 07/03/24 07/03/24 History
mL) subcutaneous pen (Lantus
Solostar U-100 Insulin)
insulin glargine 100 unit/mL (3 42 units SC DAILY Diabetes 07/03/24 07/03/24 History
mL) subcutaneous pen (Lantus
Solostar U-100 Insulin)
lisinopril 10 mg tablet 20 mg PO HS Blood Pressure 07/03/24 07/03/24 History
Review of Systems
-
History Source: Patient
Constitutional: Reports No Symptoms
EENT: Reports No Symptoms
Respiratory: Reports No Symptoms
Cardiac: Reports No Symptoms
Abdomen/GI: Reports No Symptoms
: Reports No Symptoms
Musculoskeletal: Reports Other (infection at right index finger following injury to her nail)
Skin: Reports No Symptoms
Neurological: Reports No Symptoms
Endocrine: Reports No Symptoms
Physical Exam
Vital Signs
Temp Pulse Resp BP Pulse Ox
97.5 F 95 18 164/82 95
07/08/24 07:15 07/08/24 08:15 07/08/24 07:15 07/08/24 08:15 07/08/24 07:15
Lab Results
07/08/24 08:03
07/08/24 08:03
Physical Exam
General: No Apparent Distress
HEENT: Normocephalic, Anicteric and Atraumatic
Respiratory: Non Labored Respirations
Cardiac: Negative JVD
GI: Soft, Non Tender and Non Distended
Musculoskeletal: No Edema
Skin: Warm
Neuro: AO x 3 and Other (right radial pulse +2 palpable )
Assessment / Plan
-
Assessment: 78 year old female with right index finger osteomyelitis and prior history of right middle finger amputation form non healing wound, RUE arterial duplex with no evidence of large vessel occlusion.
Plan:
Physical exam and arterial duplex with no indication of radial or ulnar occlusion, no indication for vascular surgical intervention
Would recommend work up to rule out embolic source, cardiac echo and CT angio of chest pending
Patient seen and examined at bedside with Dr. Sandip Baez III, who agrees with above plan.
[2024-07-08 11:30] LABS: Glucose - Point of Care 152 mg/dl (70-99)
--- NOTE | 2024-07-08 11:54 | W.PN.ID1 ---
Addendum entered and electronically signed by Daniela Marin MD 07/08/24 15:35:
I saw and evaluated the patient. I reviewed the resident�s note and agree with findings and plan as documented in the resident�s note.
Exam: R pointer finger: edema and erythema receding and more localized to middle and distal phalanx; tip of finger necrotic, wound with purulent drainage.
# R 2nd finger purulent cellulitis, necrosis, and osteomyelitis, cx MSSA
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
# Leukocytosis resolved
# DM with neuropathy, A1c 8.5
- UE peripheral arterial duplex without arterial insufficiency
- CM negative
-Continue cefazolin.
- I discussed with patient regarding high failure rate with conservative management with 6 weeks of IV abx. I recommend partial amputation especially in her case with severity of infection. I doubt finger is salvageable.
- Amputation scheduled for 07/10, as per Ortho.
Original Note:
Date of Service
Date of Service: July 08, 2024
Today's Communication
.
Assessment / Plan
Assessment/plan
#Acute osteomyelitis due to MSSA for amputation
#Right index finger with swelling, erythema and purulence
#History of spontaneous loss of right third finger at the distal phalanx level after infection
-aerobic culture: MSSA
-CM for rheumatological etiology -Negative
-Continue on cefazolin
-Monitor WBC, temperature.
-Follow clinically
-Ortho will plan for surgical intervention 07/10.
Conditions SECURITY REP
T2DM
Diabetic neuropathy bilateral hands
Hypertension
Hyperlipidemia
Hiatal hernia
Chief Complaint
-: Other (osteomyelitis)
Subjective / Review of Systems
Review of Systems: No Fever and No Chills
Vital Signs / Physical Exam
Vital Signs
Vital Signs
Temp Pulse Resp BP Pulse Ox
97.7 F 94 18 179/89 98
07/08/24 10:58 07/08/24 10:58 07/08/24 10:58 07/08/24 10:58 07/08/24 10:58
Physical Exam
Constitutional: No Acute Distress
Cardiovascular: Regular Rate and S1/S2; Negative Murmur
Pulmonary: Clear; Negative Wheezes
Gastrointestinal: Soft, Non Tender, Non Distended and Normal Bowel Sounds
Extremities: Negative Edema
Skin: Warm
Wound: Other (Erythema and edema entire right pointer finger, with dressing.)
Neurological: Awake, Alert, Oriented and AO x 3
Objective Data
Lab Data
Lab Results
07/08/24 08:03
07/08/24 08:03
Estimated Creat Clear 52 ml/min 07/08/24 08:03
Total Bilirubin 0.3 mg/dl (0.2-1.3) 07/07/24 07:22
AST 29 U/L (14-36) 07/07/24 07:22
ALT 22 U/L (0-35) 07/07/24 07:22
Alkaline Phosphatase 69 U/L (38-126) 07/07/24 07:22
Most recent labs reviewed.
Micro Results:
07/05/24 14:35 Wound Culture - Preliminary
Finger - Right S aureus-Methicillin Sensitive
Gram Stain - Preliminary
07/05/24 14:35 Anaerobic Culture - Preliminary
Finger - Right Culture pending. Anaerobic cultures are examined after 3
days incubation. Additional information to follow.
07/03/24 22:36 Urine Culture - Final
Urine NO GROWTH
07/03/24 19:21 MRSA Screen - Final
Nose No Methicillin Resistant Staphylococcus aureus isolated.
Upper extremity MRI 06/26/2024; Large amount of cellulitis about the second finger. Soft tissue wound of the distal second finger exposing a portion of the second distal phalanx, which contains bone marrow edema, most suspicious for the early
changes of acute osteomyelitis. Bone marrow edema in the head of the third middle phalanx deep to the amputation to the third distal interphalangeal joint. This is more likely to be reactive, but recommend correlation for signs of infection or a
soft tissue wound at the distal aspect of the amputated third finger.
Finger x-ray 07/03/2024: Soft tissue and osseous amputation at the level of the distal aspect of the distal phalanx of the right index finger. No radiopaque foreign body. No definitive abnormal osteolysis of the remaining portion of the distal
phalanx.
[2024-07-08 15:35] LABS: Glucose - Point of Care 112 mg/dl (70-99)
--- NOTE | 2024-07-08 15:59 | CM ---
Spoke with pt in room .
Offered Vn she is not sure .
PT OT recommended Out pt PT.
Cardiology and ID involved
PLAN Home unsure if wants VN or out pt PT
[2024-07-08] MEDS: CRESTOR 20 MG PO (17:18)
[2024-07-08] MEDS: LOVENOX 40 MG SC (17:18)
[2024-07-08 18:49] LABS: Glucose - Point of Care 155 mg/dl (70-99)
[2024-07-08] MEDS: NOVOLOG FLEXPEN-LOW RESISTANCE 1 UNITS SC (19:35)
[2024-07-08 20:59] LABS: Glucose - Point of Care 204 mg/dl (70-99)
[2024-07-09 03:00] VITALS: BP 160/77
[2024-07-09 03:29] LABS: Glucose - Point of Care 111 mg/dl (70-99)
[2024-07-09] MEDS: SYNTHROID 100 MCG PO (05:24)
[2024-07-09] MEDS: ANCEF 10 IV ×3 (05:24→20:44)
--- NOTE | 2024-07-09 07:10 | W.PN.UPDATE ---
Update Note
Progress Note Update
Patient laying in bed resting comfortably. With right index finger cellulitis, necrosis, and osteomyelitis. Plan for partial amputation of the right index finger on Monday under the direction of Dr. Brantley. She is to be NPO pMN for Monday
surgery. OR aware. Surgical consent has been obtained. Continue with IV Ancef for MSSA + cultures. Orthopedic surgery will continue to follow.
[2024-07-09] MEDS: THERAGRAN 1 TABLET PO (07:52)
[2024-07-09] MEDS: B COMPLEX w/VITAMIN C 1 CAPLET PO (07:52)
[2024-07-09] MEDS: TYLENOL 1000 MG PO ×3 (07:52→23:03)
[2024-07-09] MEDS: VISBIOME 2 CAP PO (07:52)
[2024-07-09] MEDS: VITAMIN C 1000 MG PO ×2 (07:52→20:44)
[2024-07-09] MEDS: PROTONIX 40 MG PO (07:53)
[2024-07-09] MEDS: ASPIR LOW (ENTERIC COATED) 81 MG PO ×2 (07:53→20:44)
[2024-07-09] MEDS: ZYLOPRIM 100 MG PO ×2 (07:53→20:44)
[2024-07-09] MEDS: ZESTRIL 20 MG PO ×2 (07:53→20:47)
[2024-07-09] MEDS: VITAMIN D3 (cholecalciferol) 50 MCG PO (07:53)
[2024-07-09] MEDS: JANUVIA 100 MG PO (07:53)
[2024-07-09] MEDS: OSCAL CAL 500 500 MG PO (07:53)
[2024-07-09 08:01] LABS: Glucose - Point of Care 91 mg/dl (70-99)
[2024-07-09 08:21] VITALS: BP 140/60
--- NOTE | 2024-07-09 08:51 | W.PN.HOSP.TC ---
Today's Communication/Plan
-
see bold
Assessment / Plan
Assessment / Plan
78F IDDM HTN HLD Hypothyroid Diabetic Neuropathy right middle finger partial amputation here with swelling erythema right index finger concerning for osteomyelitis and ataxia suspected d/t peripheral neuropathy.
Right index finger cellulitis with open necrotic wound at the PIP level secondary osseous amputation concern for osteomyelitis and diabetic female
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
-Appreciate orthopedic surgery input, plan for amputation 07/10
-MRSA screen negative, statin post IV vancomycin
-Appreciate ID input, status post IV Zosyn, continue IV Ancef with wound cx pos for MSSA
MRI hand appreciated:
-Large amount of cellulitis about the second finger. Soft tissue wound of the distal second finger exposing a portion of the second distal phalanx, which contains bone marrow edema, most suspicious for the early changes of acute osteomyelitis.
-Bone marrow edema in the head of the third middle phalanx deep to the amputation to the third distal interphalangeal joint. This is more likely to be reactive
#Mild Pseudohyponatremia
monitor
#Hypomagnesemia
monitor and replete as necessary
#HTN urgency
Blood pressure improved with increasing lisinopril from 20 mg daily to twice a day
Blood pressure still elevated, will add amlodipine 5 mg daily
#Diabetes type 2�insulin-dependent Dx age 43
#Diabetic neuropathy bilateral hands
-A1c 8.5
-Lantus 22 units at bedtime increased to BID
-resumed Januvia 100 mg daily
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
#Acute on chronic ambulatory dysfunction with dizziness
-PT/OT rec outpt therapy
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
[place] with and without contrast: 06/18/2024
1. This examination demonstrates no focal hemodynamically significant stenosis, aneurysm or occlusion.
2. 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
MRI brain 06/18/2024
1. No acute intracranial abnormality noted.
2. There is mild atrophy, most pronounced within the bilateral mesial temporal lobes. Minimal microangiopathic changes.
3. Severe degenerative changes of the bilateral temporomandibular joints, more pronounced on the right.
CT brain 06/18/2024
1. No acute intracranial pathology.
2. Mild nonacute bilateral maxillary sinusitis.
#HLD
-Continue Crestor
#Hiatal hernia
#Chronic indigestion
-PPI prn Tums
#Hypothyroidism
-Continue levothyroxine 100 mcg p.o. daily
#Osteoarthritis
-Continue Tylenol 1000 mg 3 times daily
#Gout
Continue allopurinol 100 mg twice daily
#cataracts
PT/OT appreciated outpt therapy
DVT prophylaxis - Subcu Lovenox
Full code
Updated at bedside 07/08
Total time spent to see the patient on the floor, examine the patient, review data and lab results, discuss treatment plan with patient, nursing staff around 38 minutes.
Physical Exam
General: No acute distress appears comfortable at this time
HEENT: NormoCephalic, Anicteric, Moist mucous membranes, PERRLA, [place] Conjunctivae and No Ptosis
Respiratory: Clear; No Wheezes, Rales or Rhonchi
Cardiac: S1/S2 and Regular Rhythm; No Murmur, Rub, Gallop or Peripheral Edema
GI: Soft, Non Tender, Non Distended, Normal Bowel Sounds and No Hepatosplenomegaly
Musculoskeletal: Right index finger with circumferential swelling and erythema along with distal tip skin missing with area of necrosis at tip level
Neuro: AO x 3
.
Anticipated Discharge: > 48 hours
Subjective/Interval History
-
Date of Service: July 09, 2024
Patient reports some lower extremity edema. Denies pain in her finger. No chest pain, no fever, no vomiting.
Objective Data
-
Vital Signs:
Vital Signs
Temp Pulse Resp BP Pulse Ox
97.7 F 87 16 140/60 95
07/09/24 08:21 07/09/24 08:21 07/09/24 08:21 07/09/24 08:21 07/09/24 08:21
I&O
07/08/24 07/09/24 07/10/24
06:59 06:59 06:59
Intake Total 660 / 660 1140 / 1140 420 / 420
Balance 660 / 660 1140 / 1140 420 / 420
[2024-07-09] MEDS: LANTUS 0.22 UNITS SC (08:57)
[2024-07-09] MEDS: NOVOLOG FLEXPEN-LOW RESISTANCE SC ×3 (08:57→17:11)
--- NOTE | 2024-07-09 10:09 | PN.DE.MGMTRT ---
Insulin Management
- -
07/09/2024: Diabetes management F/U:
78 year old female with PMH:IDDM HTN HLD Hypothyroid Diabetic Neuropathy right middle finger partial amputation here with swelling erythema right index finger concerning for osteomyelitis and ataxia suspected d/t peripheral neuropathy. Tentatively
planned for surgical intervention on 07/10/2024.
Was taking Lantus 42 units in AM and 26 units in PM and Current diabetes regimen includes: Lantus 22 units in AM and Januvia 100mg daily. A1C 8.5%, Cr 0.9, eGFR >60.
Pt awake, alert, sitting up in chair, pleasant, able to discuss diabetes mgt. - Clellan at bedside.
Glucose stable and in range, premeal 82 to 155, FBG 91 this AM.
Will make no change to current regimen:- Lantus to 22 units BID and Januvia 100mg.
Avoid aggressive insulin dosing to avoid hypoglycemia in this patient of advanced age.
Plan of care discussed with pt and pt's Nurse
Diabetes History
- -
Type of Diabetes: 2 requiring insulin
Pre-Admission Diabetes Regimen
Lab Results
Hemoglobin A1c 8.5 % (4.0-5.6) H 07/04/24 07:11
Insulin Pump Settings
IP Diabetes Regimen
07/08/24 07/08/24 07/08/24
11:29 15:34 18:47
POC Glucose 152 H 112 H 155 H
07/08/24 07/09/24 07/09/24
20:57 03:28 07:59
POC Glucose 204 H 111 H 91
Meal type: Dinner
Meal type: Lunch
Meal type: Breakfast
Amount consumed: 100%
Amount consumed: 100%
Amount consumed: 100%
Patient Education
[2024-07-09 11:10] VITALS: BP 158/81
--- NOTE | 2024-07-09 11:28 | W.PN.ID1 ---
Date of Service
Date of Service: July 09, 2024
Today's Communication
Continue cefazolin.
Assessment / Plan
# R 2nd finger purulent cellulitis, necrosis, and osteomyelitis, cx MSSA
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
# Leukocytosis resolved
# DM with neuropathy, A1c 8.5
- UE peripheral arterial duplex without arterial insufficiency
- CM negative
- For partial amputation scheduled for 07/10, as per Ortho.
-Continue cefazolin.
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
T2DM
Diabetic neuropathy bilateral hands
Hypertension
Hyperlipidemia
Hiatal hernia
Chief Complaint
-: Other (osteomyelitis)
Subjective / Review of Systems
No complaints.
Vital Signs / Physical Exam
Vital Signs
Vital Signs
Temp Pulse Resp BP Pulse Ox
97.7 F 84 17 158/81 97
07/09/24 11:10 07/09/24 11:10 07/09/24 11:10 07/09/24 11:10 07/09/24 11:10
Physical Exam
Constitutional: No Acute Distress and Comfortable
Eyes: No Conjunctival Hemorrhage and Sclera Anicteric
Pulmonary: Clear
Gastrointestinal: Non Tender, Non Distended and Normal Bowel Sounds
Wound: Other (right pointer finger: erythema/edema improving, now more localized to distally with necrotic wound.)
Neurological: AO x 3
Objective Data
Lab Data
Lab Results
07/08/24 08:03
07/08/24 08:03
Estimated Creat Clear 52 ml/min 07/08/24 08:03
Total Bilirubin 0.3 mg/dl (0.2-1.3) 07/07/24 07:22
AST 29 U/L (14-36) 07/07/24 07:22
ALT 22 U/L (0-35) 07/07/24 07:22
Alkaline Phosphatase 69 U/L (38-126) 07/07/24 07:22
Most recent labs reviewed.
Micro Results:
07/05/24 14:35 Anaerobic Culture - Preliminary
Finger - Right NO ANAEROBES ISOLATED
07/05/24 14:35 Wound Culture - Preliminary
Finger - Right S aureus-Methicillin Sensitive
Gram Stain - Preliminary
07/03/24 22:36 Urine Culture - Final
Urine NO GROWTH
07/03/24 19:21 MRSA Screen - Final
Nose No Methicillin Resistant Staphylococcus aureus isolated.
Upper extremity MRI 06/26/2024; Large amount of cellulitis about the second finger. Soft tissue wound of the distal second finger exposing a portion of the second distal phalanx, which contains bone marrow edema, most suspicious for the early
changes of acute osteomyelitis. Bone marrow edema in the head of the third middle phalanx deep to the amputation to the third distal interphalangeal joint. This is more likely to be reactive, but recommend correlation for signs of infection or a
soft tissue wound at the distal aspect of the amputated third finger.
Finger x-ray 07/03/2024: Soft tissue and osseous amputation at the level of the distal aspect of the distal phalanx of the right index finger. No radiopaque foreign body. No definitive abnormal osteolysis of the remaining portion of the distal
phalanx.
[2024-07-09 12:02] LABS: Glucose - Point of Care 114 mg/dl (70-99)
[2024-07-09 15:51] VITALS: BP 142/84
--- NOTE | 2024-07-09 16:38 | CM ---
Spoke with pt in room .
Pt for partial amputation of finger tomorrow.
PT OT recommended Out pt PT.
Cardiology and ID involved.
Maintained on IV antibiotics.
PLAN Home unsure if wants VN or out pt PT
[2024-07-09] MEDS: NORVASC 5 MG PO (16:43)
[2024-07-09 17:08] LABS: Glucose - Point of Care 132 mg/dl (70-99)
[2024-07-09] MEDS: CRESTOR 20 MG PO (17:12)
[2024-07-09] MEDS: LOVENOX 40 MG SC (17:13)
[2024-07-09 19:00] VITALS: BP 165/83
[2024-07-09 21:28] LABS: Glucose - Point of Care 260 mg/dl (70-99)
[2024-07-09 23:00] VITALS: BP 133/60
[2024-07-09] MEDS: LANTUS 0.1 UNITS SC (23:04)
[2024-07-10] VITALS (11 sets, daily range): BP systolic 128–157; BP diastolic 59–78
[2024-07-10] MEDS: ANCEF 10 IV ×3 (05:07→20:43)
[2024-07-10] MEDS: SYNTHROID 100 MCG PO (05:07)
[2024-07-10 05:46] LABS: Hematocrit 34.7 % (37.0-47.0); Hemoglobin 11.3 g/dL (12.0-16.0); Mean Corp Hgb Conc. 32.6 g/dL (33.0-37.0); Mean Corpuscular Hgb 29.8 pg (27.0-31.0); Mean Corpuscular Volume 91.6 fL (81.0-99.0); Mean Platelet Volume 10.9 fL (7.4-10.4); Platelet Count 384 10^3/uL (130-400); Red Blood Cell Count 3.79 10^6/uL (4.20-5.40); Red Cell Dist. Width 12.8 % (11.5-14.5)
[2024-07-10 06:07] LABS: PT 13.5 Sec (11.4-14.6)
[2024-07-10 06:18] LABS: ALT (SGPT) 19 U/L (0-35); AST (SGOT) 34 U/L (14-36); Albumin 3.7 g/dl (3.5-5.0); Alkaline Phosphatase 73 U/L (38-126); Blood Urea Nitrogen 18 mg/dl (7-17); Calcium 9.4 mg/dl (8.4-10.2); Carbon Dioxide 28 mmol/L (22-30); Chloride 100 mmol/L (98-107); Estimated Creatinine Clearance 52 ml/min; Glucose 92 mg/dl (70-99); Potassium 4.4 mmol/L (3.5-5.1); Sodium 137 mmol/L (135-145); Total Bilirubin 0.2 mg/dl (0.2-1.3); Total Protein 6.4 g/dl (6.3-8.2); eGFR > 60.00
[2024-07-10 06:24] LABS: Glucose - Point of Care 104 mg/dl (70-99)
--- NOTE | 2024-07-10 07:13 | W.PN.UPDATE ---
Update Note
Progress Note Update
Patient is resting comfortably in bed this morning. Plan is for partial amputation of the right index finger today under the direction of Dr. Brantley for cellulitis, necrosis and osteomyelitis. Dressings in place with purulence on the dressing.
Cellulitis, necrosis and purulence about the distal aspect of the finger. Continue NPO until surgery. Continue with IV Ancef for MSSA + cultures. Orthopedic surgery will continue to follow.
--- NOTE | 2024-07-10 07:54 | PN.DE.MGMTRT ---
Insulin Management
- -
07/10/2024: Diabetes management F/U:
78 year old female with PMH:IDDM HTN HLD Hypothyroid Diabetic Neuropathy right middle finger partial amputation here with swelling erythema right index finger concerning for osteomyelitis and ataxia suspected d/t peripheral neuropathy. Tentatively
planned for surgical intervention on 07/10/2024.
Was taking Lantus 42 units in AM and 26 units in PM and Current diabetes regimen includes: Lantus 22 units in AM and Januvia 100mg daily. A1C 8.5%, Cr 0.9, eGFR >60.
Pt awake, alert, sitting up in chair, family at bedside, able to discuss diabetes mgt.
NPO for OR today. Received reduced dose of Lantus 10 units @ HS. FBG 92(V), 104 POC.
Glucose stable w/o hypoglycemia.
Will hold all standing dose insulin for now and resume after procedure.
Pt was taking Lantus to 22 units BID and Januvia 100mg prior to OR.
Avoid aggressive insulin dosing to avoid hypoglycemia in this patient of advanced age.
Plan of care discussed with pt and pt's Nurse
Diabetes History
- -
Type of Diabetes: 2 requiring insulin
Pre-Admission Diabetes Regimen
07/10/24
05:09
Creatinine 0.9
Lab Results
Hemoglobin A1c 8.5 % (4.0-5.6) H 07/04/24 07:11
Insulin Pump Settings
IP Diabetes Regimen
07/09/24 07/09/24 07/09/24
07:59 12:00 17:06
Glucose
POC Glucose 91 114 H 132 H
07/09/24 07/10/24 07/10/24
21:27 05:09 06:22
Glucose 92
POC Glucose 260 H 104 H
Patient Education
--- NOTE | 2024-07-10 08:40 | W.PN.HOSP.TC ---
Today's Communication/Plan
-
For partial amputation of the right index finger today
Assessment / Plan
Assessment / Plan
78F IDDM HTN HLD Hypothyroid Diabetic Neuropathy right middle finger partial amputation here with swelling erythema right index finger concerning for osteomyelitis and ataxia suspected d/t peripheral neuropathy.
Right index finger cellulitis with open necrotic wound at the PIP level secondary osseous amputation concern for osteomyelitis and diabetic female
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
-Appreciate orthopedic surgery input, plan for amputation 07/10
-MRSA screen negative, statin post IV vancomycin
-Appreciate ID input, status post IV Zosyn, continue IV Ancef with wound cx pos for MSSA
MRI hand appreciated:
-Large amount of cellulitis about the second finger. Soft tissue wound of the distal second finger exposing a portion of the second distal phalanx, which contains bone marrow edema, most suspicious for the early changes of acute osteomyelitis.
-Bone marrow edema in the head of the third middle phalanx deep to the amputation to the third distal interphalangeal joint. This is more likely to be reactive
#Mild Pseudohyponatremia
monitor
#Hypomagnesemia
monitor and replete as necessary
#HTN urgency
Blood pressure improved with increasing lisinopril from 20 mg daily to twice a day
Blood pressure still elevated, added amlodipine 5 mg daily 07/09
#Diabetes type 2�insulin-dependent Dx age 43
#Diabetic neuropathy bilateral hands
-A1c 8.5
-Lantus 22 units at bedtime increased to BID
-resumed Januvia 100 mg daily
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
#Acute on chronic ambulatory dysfunction with dizziness
-PT/OT rec outpt therapy
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
[place] with and without contrast: 06/18/2024
1. This examination demonstrates no focal hemodynamically significant stenosis, aneurysm or occlusion.
2. 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
MRI brain 06/18/2024
1. No acute intracranial abnormality noted.
2. There is mild atrophy, most pronounced within the bilateral mesial temporal lobes. Minimal microangiopathic changes.
3. Severe degenerative changes of the bilateral temporomandibular joints, more pronounced on the right.
CT brain 06/18/2024
1. No acute intracranial pathology.
2. Mild nonacute bilateral maxillary sinusitis.
#HLD
-Continue Crestor
#Hiatal hernia
#Chronic indigestion
-PPI prn Tums
#Hypothyroidism
-Continue levothyroxine 100 mcg p.o. daily
#Osteoarthritis
-Continue Tylenol 1000 mg 3 times daily
#Gout
Continue allopurinol 100 mg twice daily
#cataracts
PT/OT appreciated outpt therapy
DVT prophylaxis - Subcu Lovenox
Full code
Updated at bedside 07/08
Total time spent to see the patient on the floor, examine the patient, review data and lab results, discuss treatment plan with patient, nursing staff around 36 minutes.
Physical Exam
General: No acute distress appears comfortable at this time
HEENT: NormoCephalic, Anicteric, Moist mucous membranes, PERRLA, [place] Conjunctivae and No Ptosis
Respiratory: Clear; No Wheezes, Rales or Rhonchi
Cardiac: S1/S2 and Regular Rhythm; No Murmur, Rub, Gallop or Peripheral Edema
GI: Soft, Non Tender, Non Distended, Normal Bowel Sounds and No Hepatosplenomegaly
Musculoskeletal: Right index finger with circumferential swelling and erythema along with distal tip skin missing with area of necrosis at tip level
Neuro: AO x 3
Ext: Trace bilateral lower extremity edema
.
Anticipated Discharge: 24 - 48 hours
Subjective/Interval History
-
Date of Service: July 10, 2024
Denies finger pain. No fever, no vomiting. No chest pain, no shortness of breath.
Objective Data
-
Labs:
Laboratory Results
07/10/24
05:09
WBC 10.0
Hgb 11.3 L
Hct 34.7 L
Plt Count 384
PT 13.5
INR 1.00
Sodium 137
Potassium 4.4
Chloride 100
Carbon Dioxide 28
BUN 18 H
Creatinine 0.9
Glucose 92
Calcium 9.4
Total Bilirubin 0.2
AST 34
ALT 19
Alkaline Phosphatase 73
Vital Signs:
Vital Signs
Temp Pulse Resp BP Pulse Ox
97.9 F 86 17 157/63 94
07/10/24 07:41 07/10/24 07:41 07/10/24 07:41 07/10/24 07:41 07/10/24 07:41
I&O
07/09/24 07/10/24 07/11/24
06:59 06:59 06:59
Intake Total 1140 / 1140 420 / 420 0 / 0
Balance 1140 / 1140 420 / 420 0 / 0
[2024-07-10] MEDS: OSCAL CAL 500 500 MG PO (09:09)
[2024-07-10] MEDS: NORVASC 5 MG PO (09:09)
[2024-07-10] MEDS: VISBIOME 2 CAP PO (09:09)
[2024-07-10] MEDS: PROTONIX 40 MG PO (09:09)
[2024-07-10] MEDS: THERAGRAN 1 TABLET PO (09:09)
[2024-07-10] MEDS: VITAMIN C 1000 MG PO ×2 (09:10→20:42)
[2024-07-10] MEDS: TYLENOL 1000 MG PO ×2 (09:10→22:29)
[2024-07-10] MEDS: B COMPLEX w/VITAMIN C 1 CAPLET PO (09:10)
[2024-07-10] MEDS: VITAMIN D3 (cholecalciferol) 50 MCG PO (09:11)
[2024-07-10] MEDS: ZESTRIL 20 MG PO ×2 (09:11→20:41)
[2024-07-10] MEDS: ZYLOPRIM 100 MG PO ×2 (09:11→20:42)
[2024-07-10] MEDS: ASPIR LOW (ENTERIC COATED) 81 MG PO ×2 (09:11→22:29)
[2024-07-10] MEDS: JANUVIA PO (09:12)
[2024-07-10 09:32] LABS: Glucose - Point of Care 110 mg/dl (70-99)
[2024-07-10] MEDS: LANTUS SC (10:34)
--- NOTE | 2024-07-10 10:40 | CM ---
Chart reviewed: Plan is for partial amputation of the right index finger today under the direction of Dr. Brantley for cellulitis.
PT recommends Outpatient Therapy post discharge
Plan: CM will monitor for any additional discharge needs
[2024-07-10 11:35] LABS: Glucose - Point of Care 126 mg/dl (70-99)
--- NOTE | 2024-07-10 13:17 | W.PN.ID1 ---
Addendum entered and electronically signed by Daniela Marin MD 07/10/24 15:53:
I saw and evaluated the patient. I reviewed the resident�s note and agree with findings and plan as documented in the resident�s note.
For partial finger amputation this evening.
Continue cefazolin through surgery.
Original Note:
Date of Service
Date of Service: July 10, 2024
Today's Communication
.
Assessment / Plan
#Right second finger purulent cellulitis, necrosis and osteomyelitis
#History of spontaneous loss of right third finger at the distal phalanx level after infection
# Diabetes mellitus with neuropathy, A1c 8.5
-Culture grew MSSA
-UE peripheral artery duplex without arterial insufficiency
-CM negative
-For partial amputation scheduled today, as per Ortho
-Continue cefazolin
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
T2DM
Diabetic neuropathy bilateral hands
Hypertension
Hyperlipidemia
Hiatal hernia
Chief Complaint
-: Other (osteomyelitis)
Subjective / Review of Systems
Review of Systems: No Fever and No Chills
Vital Signs / Physical Exam
Vital Signs
Vital Signs
Temp Pulse Resp BP Pulse Ox
97.6 F 87 16 138/75 95
07/10/24 11:06 07/10/24 11:06 07/10/24 11:06 07/10/24 11:06 07/10/24 11:06
Physical Exam
Constitutional: No Acute Distress and Comfortable
Eyes: No Conjunctival Hemorrhage
Cardiovascular: Regular Rate and S1/S2
Pulmonary: Clear
Gastrointestinal: Soft, Non Tender and Non Distended
Wound: Other (erythema resolving, necrotic wound with pus. )
Neurological: AO x 3
Objective Data
Lab Data
Lab Results
07/10/24 05:09
07/10/24 05:09
PT 13.5 Sec (11.4-14.6) 07/10/24 05:09
INR 1.00 07/10/24 05:09
Estimated Creat Clear 52 ml/min 07/10/24 05:09
Total Bilirubin 0.2 mg/dl (0.2-1.3) 07/10/24 05:09
AST 34 U/L (14-36) 07/10/24 05:09
ALT 19 U/L (0-35) 07/10/24 05:09
Alkaline Phosphatase 73 U/L (38-126) 07/10/24 05:09
Most recent labs reviewed.
Micro Results:
07/05/24 14:35 Wound Culture - Final
Finger - Right S aureus-Methicillin Sensitive
Gram Stain - Final
07/05/24 14:35 Anaerobic Culture - Final
Finger - Right NO ANAEROBES ISOLATED
07/03/24 22:36 Urine Culture - Final
Urine NO GROWTH
07/03/24 19:21 MRSA Screen - Final
Nose No Methicillin Resistant Staphylococcus aureus isolated.
Upper extremity MRI 06/26/2024; Large amount of cellulitis about the second finger. Soft tissue wound of the distal second finger exposing a portion of the second distal phalanx, which contains bone marrow edema, most suspicious for the early
changes of acute osteomyelitis. Bone marrow edema in the head of the third middle phalanx deep to the amputation to the third distal interphalangeal joint. This is more likely to be reactive, but recommend correlation for signs of infection or a
soft tissue wound at the distal aspect of the amputated third finger.
Finger x-ray 07/03/2024: Soft tissue and osseous amputation at the level of the distal aspect of the distal phalanx of the right index finger. No radiopaque foreign body. No definitive abnormal osteolysis of the remaining portion of the distal
phalanx.
[2024-07-10] MEDS: TYLENOL PO (16:06)
[2024-07-10 18:41] LABS: Glucose - Point of Care 119 mg/dl (70-99)
[2024-07-10] MEDS: CRESTOR 20 MG PO (20:42)
[2024-07-10] MEDS: LOVENOX 40 MG SC (20:42)
[2024-07-10] MEDS: COLACE 100 MG PO (20:43)
[2024-07-10 21:36] LABS: Glucose - Point of Care 216 mg/dl (70-99)
[2024-07-10] MEDS: LANTUS 0.1 UNITS SC (22:29)
[2024-07-11 03:00] VITALS: BP 116/57
[2024-07-11] MEDS: ANCEF 10 IV (05:15)
[2024-07-11] MEDS: SYNTHROID 100 MCG PO (05:16)
[2024-07-11 07:28] LABS: Glucose - Point of Care 129 mg/dl (70-99)
[2024-07-11 07:33] VITALS: BP 136/68
--- NOTE | 2024-07-11 07:45 | PN.DE.MGMTRT ---
Insulin Management
- -
07/11/2024: Diabetes management F/U:
78 year old female with PMH:IDDM HTN HLD Hypothyroid Diabetic Neuropathy right middle finger partial amputation here with swelling erythema right index finger concerning for osteomyelitis and ataxia suspected d/t peripheral neuropathy. Tentatively
planned for surgical intervention on 07/10/2024.
Was taking Lantus 42 units in AM and 26 units in PM and Current diabetes regimen includes: Lantus 22 units in AM and Januvia 100mg daily. A1C 8.5%, Cr 0.9, eGFR >60.
Pt awake, alert, sitting up in chair, at bedside, able to discuss diabetes mgt. Pt states she is for discharge home today
Was NPO all day yesterday for OR. glucose was 110 to 126 while NPO. Received reduced dose of Lantus 10 units @ HS, FBG 129 POC this AM.
Will resume all standing dose insulin this morning , Lantus to 22 units BID and Januvia 100mg.
Avoid aggressive insulin dosing to avoid hypoglycemia in this patient of advanced age.
Plan of care discussed with pt and pt's Nurse.
Pt was taking Lantus 42 units in AM and 26 units in PM, however, her insulin requirements have been lower while in the hospital.
Instructed pt to contact PCP for insulin dose adjustment if her glucose levels start to go up at home since
Diabetes History
- -
Type of Diabetes: 2 requiring insulin
Pre-Admission Diabetes Regimen
Lab Results
Hemoglobin A1c 8.5 % (4.0-5.6) H 07/04/24 07:11
Insulin Pump Settings
IP Diabetes Regimen
07/10/24 07/10/24 07/10/24
09:27 11:34 18:39
POC Glucose 110 H 126 H 119 H
07/10/24 07/11/24
21:36 07:27
POC Glucose 216 H 129 H
Meal type: Lunch
Meal type: Breakfast
Patient Education
--- NOTE | 2024-07-11 07:46 | W.PN.ORTHO ---
Today's Communication / Plan
-
Aluminum splint/dressing in place
Ice with elevation to control swelling and pain
Wound check 48 hours postop
Assessment
.
Distal Motor Intact: Yes
Dressing:
Clean, dry and intact.
Plan
.
Surgery / Date: Partial amputation right index finger 07/10 Ritting
Activity:
Out of bed.
PT/OT
Discharge Plan: Home
Subjective
.
.:
Patient resting comfortably.
Vital Signs and Labs
.
Vital Signs and Labs:
Lab Results
07/10/24 05:09
07/10/24 05:09
Temp Pulse Resp BP Pulse Ox
98.7 F 84 18 136/68 93
07/11/24 07:33 07/11/24 07:33 07/11/24 07:33 07/11/24 07:33 07/11/24 07:33
PT 13.5 Sec (11.4-14.6) 07/10/24 05:09
INR 1.00 07/10/24 05:09
[2024-07-11] MEDS: NORVASC 5 MG PO (08:15)
[2024-07-11] MEDS: ZYLOPRIM 100 MG PO (08:15)
[2024-07-11] MEDS: THERAGRAN 1 TABLET PO (08:15)
[2024-07-11] MEDS: ZESTRIL 20 MG PO (08:16)
[2024-07-11] MEDS: VITAMIN D3 (cholecalciferol) 50 MCG PO (08:16)
[2024-07-11] MEDS: OSCAL CAL 500 500 MG PO (08:16)
[2024-07-11] MEDS: VITAMIN C 1000 MG PO (08:16)
[2024-07-11] MEDS: B COMPLEX w/VITAMIN C 1 CAPLET PO (08:16)
[2024-07-11] MEDS: ASPIR LOW (ENTERIC COATED) 81 MG PO (08:17)
[2024-07-11] MEDS: VISBIOME 2 CAP PO (08:17)
[2024-07-11] MEDS: TYLENOL 1000 MG PO (08:17)
[2024-07-11] MEDS: PROTONIX 40 MG PO (08:17)
[2024-07-11] MEDS: COLACE PO ×2 (08:18→08:23)
--- NOTE | 2024-07-11 08:52 | W.PN.HOSP.TC ---
Today's Communication/Plan
-
Cleared by ID and orthopedic surgery for discharge today
Assessment / Plan
Assessment / Plan
78F IDDM HTN HLD Hypothyroid Diabetic Neuropathy right middle finger partial amputation here with swelling erythema right index finger concerning for osteomyelitis and ataxia suspected d/t peripheral neuropathy.
Right index finger cellulitis with open necrotic wound at the PIP level secondary osseous amputation concern for osteomyelitis and diabetic female
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
-Appreciate orthopedic surgery input, s/p Right index finger partial amputation, distal middle phalanx 07/[address] Rosas
-MRSA screen negative, statin post IV vancomycin
-Appreciate ID input, status post IV Zosyn, now on IV Ancef with wound cx pos for MSSA
-Cleared by ID and orthopedic surgery for discharge on Keflex 500 mg 4 times daily for 7 more days
-Has follow-up appointment with orthopedic surgery on 07/15 at 3 PM, patient needs to keep her dressing on until seen in the office
-Follow-up with PCP in 1 week
MRI hand appreciated:
-Large amount of cellulitis about the second finger. Soft tissue wound of the distal second finger exposing a portion of the second distal phalanx, which contains bone marrow edema, most suspicious for the early changes of acute osteomyelitis.
-Bone marrow edema in the head of the third middle phalanx deep to the amputation to the third distal interphalangeal joint. This is more likely to be reactive
#Mild Pseudohyponatremia
monitor
#Hypomagnesemia
monitor and replete as necessary
#HTN urgency
Blood pressure improved with increasing lisinopril from 20 mg daily to twice a day
Blood pressure improved with adding amlodipine 5 mg daily 07/09
Continue above regimen, new prescription sent
#Diabetes type 2�insulin-dependent Dx age 43
#Diabetic neuropathy bilateral hands
-A1c 8.5
-Lantus 22 units at bedtime increased to BID
-resumed Januvia 100 mg daily
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
#Acute on chronic ambulatory dysfunction with dizziness
-PT/OT rec outpt therapy
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
[place] with and without contrast: 06/18/2024
1. This examination demonstrates no focal hemodynamically significant stenosis, aneurysm or occlusion.
2. 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
MRI brain 06/18/2024
1. No acute intracranial abnormality noted.
2. There is mild atrophy, most pronounced within the bilateral mesial temporal lobes. Minimal microangiopathic changes.
3. Severe degenerative changes of the bilateral temporomandibular joints, more pronounced on the right.
CT brain 06/18/2024
1. No acute intracranial pathology.
2. Mild nonacute bilateral maxillary sinusitis.
#HLD
-Continue Crestor
#Hiatal hernia
#Chronic indigestion
-PPI prn Tums
#Hypothyroidism
-Continue levothyroxine 100 mcg p.o. daily
#Osteoarthritis
-Continue Tylenol 1000 mg 3 times daily
#Gout
Continue allopurinol 100 mg twice daily
#cataracts
PT/OT appreciated outpt therapy
DVT prophylaxis - Subcu Lovenox
Full code
Updated at bedside 07/08
Physical Exam
General: No acute distress appears comfortable at this time
HEENT: NormoCephalic, Anicteric, Moist mucous membranes, PERRLA, [place] Conjunctivae and No Ptosis
Respiratory: Clear; No Wheezes, Rales or Rhonchi
Cardiac: S1/S2 and Regular Rhythm; No Murmur, Rub, Gallop or Peripheral Edema
GI: Soft, Non Tender, Non Distended, Normal Bowel Sounds and No Hepatosplenomegaly
Musculoskeletal: Right index finger dressed
Neuro: AO x 3
Ext: Trace bilateral lower extremity edema
.
Anticipated Discharge: Today
Subjective/Interval History
-
Date of Service: July 11, 2024
Denies right index finger pain. Complains of itchiness. No chest pain, no shortness of breath, no palpitations. No fever, no vomiting. Eager for discharge today.
Objective Data
-
Vital Signs:
Vital Signs
Temp Pulse Resp BP Pulse Ox
98.7 F 84 18 136/68 93
07/11/24 07:33 07/11/24 07:33 07/11/24 07:33 07/11/24 07:33 07/11/24 07:33
I&O
07/10/24 07/11/24 07/12/24
06:59 06:59 06:59
Intake Total 420 / 420 480 / 480
Balance 420 / 420 480 / 480
[2024-07-11] MEDS: LANTUS 0.15 UNITS SC (09:31)
[2024-07-11] MEDS: JANUVIA 100 MG PO (09:31)
--- NOTE | 2024-07-11 10:07 | W.PN.ID1 ---
Addendum entered and electronically signed by Daniela Marin MD 07/11/24 11:22:
I saw and evaluated the patient. I reviewed the resident�s note and agree with findings and plan as documented in the resident�s note.
# R 2nd finger purulent cellulitis, necrosis, and osteomyelitis, cx MSSA
- s/p partial finger amputation 07/10/24.
-Suspect surgical cure.
-Can transition cefazolin to cephalexin 500mg po qid x 7 more days.
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
# DM with neuropathy, A1c 8.5
D/W Dr. Kendra Lisa
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
T2DM
Diabetic neuropathy bilateral hands
Hypertension
Hyperlipidemia
Hiatal hernia
Original Note:
Date of Service
Date of Service: July 11, 2024
Today's Communication
Keflex for a total of 7 days.
Assessment / Plan
#Right second finger purulent cellulitis, necrosis and osteomyelitis s/p artial amputation right index finger 07/10
#History of spontaneous loss of right third finger at the distal phalanx level after infection
# Diabetes mellitus with neuropathy, A1c 8.5
-Culture grew MSSA
-UE peripheral artery duplex without arterial insufficiency
-CM negative
-s/p partial amputation right index finger 07/10
-OR finger culture pending.
-switch IV cefazolin to Keflex. Abx for a total of 7 more days.
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
T2DM
Diabetic neuropathy bilateral hands
Hypertension
Hyperlipidemia
Hiatal hernia
Chief Complaint
-: Other (osteomyelitis)
Subjective / Review of Systems
Review of Systems: No Fever and No Chills
Vital Signs / Physical Exam
Vital Signs
Vital Signs
Temp Pulse Resp BP Pulse Ox
98.7 F 84 18 136/68 93
12/05/24 07:33 07/11/24 07:33 07/11/24 07:33 07/11/24 07:33 07/11/24 07:33
Physical Exam
Constitutional: No Acute Distress
Cardiovascular: Regular Rate and S1/S2
Pulmonary: Clear
Gastrointestinal: Soft, Non Tender, Non Distended and Normal Bowel Sounds
Wound: Other (splint and dressing in place. )
Neurological: AO x 3
Objective Data
Lab Data
Lab Results
07/10/24 05:09
07/10/24 05:09
PT 13.5 Sec (11.4-14.6) 07/10/24 05:09
INR 1.00 07/10/24 05:09
Estimated Creat Clear 52 ml/min 07/10/24 05:09
Total Bilirubin 0.2 mg/dl (0.2-1.3) 07/10/24 05:09
AST 34 U/L (14-36) 07/10/24 05:09
ALT 19 U/L (0-35) 07/10/24 05:09
Alkaline Phosphatase 73 U/L (38-126) 07/10/24 05:09
Most recent labs reviewed.
Micro Results:
07/10/24 17:32 Tissue Culture - Pending
Finger - Right Gram Stain - Pending
07/05/24 14:35 Wound Culture - Final
Finger - Right S aureus-Methicillin Sensitive
Gram Stain - Final
07/05/24 14:35 Anaerobic Culture - Final
Finger - Right NO ANAEROBES ISOLATED
07/03/24 22:36 Urine Culture - Final
Urine NO GROWTH
07/03/24 19:21 MRSA Screen - Final
Nose No Methicillin Resistant Staphylococcus aureus isolated.
Upper extremity MRI 06/26/2024; Large amount of cellulitis about the second finger. Soft tissue wound of the distal second finger exposing a portion of the second distal phalanx, which contains bone marrow edema, most suspicious for the early
changes of acute osteomyelitis. Bone marrow edema in the head of the third middle phalanx deep to the amputation to the third distal interphalangeal joint. This is more likely to be reactive, but recommend correlation for signs of infection or a
soft tissue wound at the distal aspect of the amputated third finger.
Finger x-ray 07/03/2024: Soft tissue and osseous amputation at the level of the distal aspect of the distal phalanx of the right index finger. No radiopaque foreign body. No definitive abnormal osteolysis of the remaining portion of the distal
phalanx.
[2024-07-11 11:06] VITALS: BP 143/70
[2024-07-11 11:12] LABS: Glucose - Point of Care 137 mg/dl (70-99)
[2024-07-11] MEDS: KEFLEX 500 MG PO (11:17)
--- NOTE | 2024-07-11 14:02 | CM ---
entered order for discharge.
Spoke with pt she agreed to dc to home today.
Offered VN she declined need.
will drive her home.
Pt had partial amputation of finger.
PLAN Home no needs
== END 2024-07-11 13:54 | disposition home or self-care (01) | DRG 854 ==
LOC: 3 WEST ACU 15:59
PROVIDERS: Clinical Nurse Specialist Family Health; Internal Medicine; Orthopaedic Surgery Hand Surgery; Physician Assistant; Student in an Organized Health Care Education/Training Program; ADMITTING PHYSICIAN Internal Medicine; ATTENDING PHYSICIAN Family Medicine; CONSULT PHYSICIAN Psychiatry & Neurology Neurology; CONSULT PHYSICIAN Student in an Organized Health Care Education/Training Program; EMERGENCY PHYSICIAN Emergency Medicine; FAMILY PHYSICIAN Internal Medicine; OTHER PHYSICIAN Internal Medicine Infectious Disease; OTHER PHYSICIAN Surgery Vascular Surgery
PROC: 0X6N0Z3 Detachment at Right Index Finger, Low, Open Approach (ICD-10-PCS; 2024-07-10)
DX: A41.9 Sepsis, unspecified organism (principal); E11.52 Type 2 diabetes mellitus with diabetic peripheral angiopathy with gangrene; E87.1 Hypo-osmolality and hyponatremia; M86.141 Other acute osteomyelitis, right hand; E11.69 Type 2 diabetes mellitus with other specified complication; E03.9 Hypothyroidism, unspecified; I10 Essential (primary) hypertension; E78.00 Pure hypercholesterolemia, unspecified; K44.9 Diaphragmatic hernia without obstruction or gangrene; K30 Functional dyspepsia; M19.90 Unspecified osteoarthritis, unspecified site; M10.9 Gout, unspecified; E11.65 Type 2 diabetes mellitus with hyperglycemia; L03.011 Cellulitis of right finger; B95.61 Methicillin susceptible Staphylococcus aureus infection as the cause of diseases classified elsewhere; I16.0 Hypertensive urgency; E11.36 Type 2 diabetes mellitus with diabetic cataract; E83.42 Hypomagnesemia; Z79.4 Long term (current) use of insulin; Z79.82 Long term (current) use of aspirin; Z79.899 Other long term (current) drug therapy; Z89.021 Acquired absence of right finger(s)
CPT/HCPCS: 71275; 73140; 73220; 80048; 80053; 81003; 81015; 82962; 83036; 83735; 83930; 83935; 84100; 84300; 84443; 84550; 85025; 85027; 85610; 86038; 87070; 87075; 87086; 87147; 87176; 87186; 87205; 93005; 93306; 93923; 93930; 96374; 97116; 97162; 97166; 97530; 99285; A9575; Q9967